=== PATIENT | female | born 1985 | race Caucasian/White ===

== ENCOUNTER 2023-12-28 11:14 | Emergency (ER) | payer MEDICAID, SELFPAY ==
--- NOTE | 2023-12-28 | ECG_ITS ---
APPROVED REPORT Exam: Resting ECG HR:138 bpm ECG Measurements Heart Rate 138 AXES OR 135 P 73 QRSd 81 QRS 103 QT 283 T 58 QTc 363 Conclusion SINUS TACHYCARDIA RIGHT AXIS DEVIATION [QRS AXIS > 100] ABNORMAL ECG UNCONFIRMED REPORT Electronically signed by : GINO VICENTE, 12/29/2023 23:12:19
[2023-12-28 11:14] VITALS: BP 137/92; PULSE 124; RESP 24; TEMP 37.1; O2SAT 100; BMI 24.0
[2023-12-28 11:30] VITALS: BP 129/98; PULSE 118; RESP 23; O2SAT 100
--- NOTE | 2023-12-28 11:33 | PC.NURSE ---
Dr. Oreilly at [facility] for pt eval
--- NOTE | 2023-12-28 11:37 | ED_ITS ---
Discharge Plan Disposition Patient Disposition: Home, Self-Care Prescriptions Prescriptions: New hydroxyzine pamoate [Vistaril] 25 mg capsule 25 mg PO Q8H PRN (Reason: anxiety) 7 Days Qty: 21 0RF Referrals Follow up/Referrals: Gayla Okeefe APRN [Nurse Practitioner] - See instructions Provider,Ishmael Alston [Tech - Non Licensed] - See instructions Activity Restrictions/Add. Instructions Additional Instructions/Restrictions: Please follow-up with Gayla Okeefe to further discuss your chronic anxiety and panic attack needs. Return with any significant worsening of her symptoms. Clinical Impressions Clinical Impression: Severe anxiety with panic Print Language Print Language: Monegasque Discharge ED Provider: Branden Oreilly General Adult HPI General Chief complaint: Chest Pain Stated complaint: Chest Pain, poss panic attack Time Seen by Provider: 12/28/23 11:32 History of Present Illness HPI narrative: Patient is a 38-year-old female accompanied by her boyfriend who presents today with severe anxiety and panic. She states she has a history of agoraphobia and gets very anxious and concerned about many things at random times. Nothing specifically provokes this today. She does state that she feels that her chest is tight but denies any other symptoms at the moment. Denies any other past medical history. Related Data Previous Rx's ?Medication ?Instructions ?Recorded hydroxyzine pamoate 25 mg capsule 25 mg PO Q8H PRN anxiety 7 days 12/28/23 (Vistaril) #21 caps Allergies Allergy/AdvReac Type Severity Reaction Status Date / Time povidone-iodine (From Allergy Mild Rash Verified 12/28/23 11:38 Betadine) iron Allergy Rash Verified 12/28/23 11:38 PFSH PFS Disclaimer: The information contained in this section may have been updated after the patient was seen, as this information can be updated by other users. Social History Smoking Status: Current every day smoker alcohol intake: never current occupational status: other ROS Obtained: Yes All systems reviewed & no additional complaints except as documented Physical Exam General General appearance: anxious (Severe anxiety and panic) Respiratory Respiratory exam: Present normal lung sounds bilaterally Cardiovascular Cardiovascular exam: Present tachycardia Neurological Exam Neurological exam: Present alert and oriented X3 Medical Decision Making Medical Records Screening: Per USPSTF and CDC recommendations, given the prevalence of disease in our region, it is our hospital?s policy to screen for HIV and viral Hepatitis for all patients aged 18 and over and those with ongoing risk factors. Anand Inquiry Pt receiving controlled substance: No Vital Signs: 12/28/23 11:14 12/28/23 11:30 12/28/23 12:01 Temperature 98.7 F Temperature Source Oral Pulse Rate 118 H 114 H Pulse Rate [Right] 124 H Respiratory Rate 24 23 Blood Pressure 129/98 H 118/70 Blood Pressure [Right Arm] 137/92 H Blood Pressure Mean 86 Blood Pressure Mean [Right Arm] 107 Blood Pressure Source [Right Arm] Automatic Cuff 02 Sat by Pulse Oximetry 100 100 100 Oxygen Delivery Method Room Air Room Air Room Air Orders (Tests/Meds): ED MEDICATIONS Generic Name Dose Route Start Last Admin Trade Name Freq PRN Reason Stop Dose Admin Lactated Ringer's 1,000 mls @ 999 mls/hr 12/28/23 11:45 12/28/23 11:46 Lactated Ringer's 1000 Ml Bag IV 12/28/23 12:45 999 mls/hr .Q1H1M GONSALO Administration Sodium Chloride 10 ml 12/28/23 11:35 Sodium Chloride 0.9% 10ml Vial IV 01/27/24 11:34 NEEDED PRN to Dilute Lorazepam inj Discontinued Medications Generic Name Dose Route Start Last Admin Trade Name Freq PRN Reason Stop Dose Admin Lorazepam 1 mg 12/28/23 11:35 12/28/23 11:46 Lorazepam 2mg/Ml Vial IV 12/28/23 11:36 1 mg ONCE ONE Administration ORDERS Category Date Time Status HIV (1&2) Antibody Rapid Stat Lab 12/28/23 11:15 Received Hep C Ab with Reflex to RNA Stat Lab 12/28/23 11:15 Received ECG Data Tracing #1: Ventricular rate of 138 sinus tachycardia no acute ischemic changes noted negative deflection in lead I consistent with right axis deviation no significant duction abnormalities Medical Decision Narrative: 38-year-old presenting today with sinus tachycardia and severe anxiety and panic. This is consistent with a panic attack. EKG is nonischemic highly doubt that this is ACS or myocardial ischemia. Also do not believe this is other cardiopulmonary pathology such as pulmonary embolism etc. Will hold off on further workup until anxiolytics and IV fluids have been administered. Will reassess after that. Reassessment 12:32 PM patient's heart rate on my final evaluation is 100 she has completely improved after IV Ativan she not has any chest pain that is all consistent with panic attack and anxiety. I have given her referral to Gayla Okeefe and prescribed Vistaril as needed for her anxiety as needed. Return precautions emphasized was discharged in stable condition. Critical Care Critical Care Time Critical Care Time: No
[2023-12-28] MEDS: LORazepam 2MG/ML VIAL 1 MG IV (11:46)
[2023-12-28] MEDS: LACTATED RINGERS 1000ML 1,000 ML 999 ML IV (11:46)
[2023-12-28 12:01] VITALS: BP 118/70; PULSE 114; O2SAT 100
[2023-12-28 12:35] LABS: HIV (1&2) Antibody Rapid NONREACTIVE (NONREACTIVE)
[2023-12-28 12:36] VITALS: BP 105/69; PULSE 113; RESP 18; TEMP 36.7; O2SAT 99
[2023-12-29 07:14] LABS: HCV Ab Non Reactive (Non Reactive)
== END 2023-12-28 12:37 | disposition home or self-care (01) ==
PROVIDERS: Emergency Provider Student in an Organized Health Care Education/Training Program; PCP Emergency Medicine
DX: F41.0 Panic disorder [episodic paroxysmal anxiety] (principal); R07.9 Chest pain, unspecified
CPT/HCPCS: 86803; 87389; 93005; 96361; 96374; 99283; J2060; J7120

== ENCOUNTER 2024-11-18 00:05 | Emergency (ER) | payer MEDICAID, SELFPAY ==
--- OUTSIDE RECORDS SUMMARY | 2009-05-11 20:00 | XMS_ITS | Continuity of Care Document ---
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 Name Role Phone No Information Unavailable Unavailable Advance Directives Directive Yes / No Effective Date File Name No Information Encounters Encounter Description Practice Location Reason(s) For Visit Diagnoses Date Provider Providers Copied on Encounter [facility], [address] [place] [address], [facility], [place] tel:[phone] No Location No Information Apr-0 7-201 0 No Information Family History Family Member Type Diagnosis Age At Onset No Information Payers Payer name Insurance type Covered alliance party ID Authoriza tion(s) No Information Social History Type Description Quantity Date Captured Comments Sex Female Smoking Status No Information Chief Complaint And Reason For Visit No Information Reason For Referral Reason For Referral No Information History Of Present Illness Encounter Date Complaint History Of Prese nt Illness No Information Functional Status Date Functional Assessmen t No Information Instructions Date Instruction Additional Infor mation No Information Assessments Type Assessment Date No Information Patient Care Teams Name Effective Dates (start - stop) Status Members No Information
--- OUTSIDE RECORDS SUMMARY | 2024-07-12 17:30 | XMS_ITS ---
Author Organization [facility] Address [address] [place] [address] Care Team Providers [facility] Wellness Coordinator Name Role Phone Migration, Provider Unavailable Unavailable Allergies Allergen (clinical drug ingredient) Drug/Non Drug Allergy documented on EMR Reaction Allergy Type Onset Date Status povidone-iodine Betadine rash Drug Allergy A ctive oxycodone oxyCODONE rash Drug Allergy Active tramadol traMADol Unknown Drug Allergy Active REASON FOR VISIT [facility] To [facility] Conversion Encounter Medications Medication SIG (Take, Route, Frequency, Duration) Notes Start Date End Date Status rOPINIRole HCl 1 MG Tablet 1 tab(s) oral ly 3 times a day; Duration: 30 day(s) 07/07/2020 Active Pepcid 20 MG Tablet 1 tab(s) orally 2 ti mes a day; Duration: 30 days Active Atenolol 25 MG Tablet 1 tab(s) orally on ce a day; Duration: 30 day(s) Active Promethazine-DM 6.25-15 MG/5ML Syrup 5 mL orally every 6 hours prn 05/03/2021 Active Vitamin D3 1.25 MG (72635 UT) Capsule as directed orally once a week; Duration: 30 day(s) Active KlonoPIN 0.5 MG Tablet 1 tab(s) orally d aily prn; Duration: 28 days 04/11/2021 Active Encounters Encounter Location Date Provider Diagnosis [facility] [address] [place] [address] 07/12/2024 Provider Migration Plan Of Treatment No Information Progress Notes * Katherin WILSON RDOB:1985 (39 yo F)Acc No.[id number]:07/12/2024 Patient: Katherin Fernandez Provider: :1985 A ge:39 Y S ex:Female Date:07/12/2024 Address:[place], [id number] Subjective: * Chief Complaints: * M [facility] Conversion Encounter * Medications: T akingVitamin D3 1.25 MG (98315 UT) Capsule as directed orally once a week rOPINIRole HCl 1 MG Tablet 1 tab(s) orally 3 times a day Pepcid 20 MG Tablet 1 tab(s) orally 2 times a day Atenolol 25 MG Tablet 1 tab(s) orally once a day KlonoPIN 0.5 MG Tablet 1 tab(s) orally daily prn Promethazine-DM 6.25-15 MG/5ML Syrup 5 mL orally every 6 hours prn Taking Vitamin D3 1.25 MG (64197 UT) Capsule as directed orally once a week Taking rOPINIRole HCl 1 MG Tablet 1 tab(s) orally 3 times a day Taking Pepcid 20 MG Tablet 1 tab(s) orally 2 times a day Taking Atenolol 25 MG Tablet 1 tab(s) orally once a day Taking KlonoPIN 0.5 MG Tablet 1 tab(s) orally daily prn Taking Promethazine-DM 6.25-15 MG/5ML Syrup 5 mL orally every 6 hours prn * Allergies: B etadine: rashoxyCODONE: rashtraMADol * Electronic signature of Prov ider Migration on 11/18/2024 at 12:12 AM EDT Sign off status: Pending * Provider: Date: 0 07/12/2024 Generated for Darin olmos/Glory/Sona on: 1 12:12 AM EDT
--- OUTSIDE RECORDS SUMMARY | 2024-11-18 00:12 | XMS_ITS | Encounter Summary ---
Author Organization [employer] ([place], [place], [place], [place]) Address [address] [place] [address] Care Team Providers Care Division Manager Name Role Phone Unavailable Primary Care Provider Unavailabl e Encounter Details Date Type Department Care Team (Late st Contact Info) Description 10/18/2018 Transcribed Document [facility] Family Medicine [address] [place] [address] ProviderNani MD [address] [place] [address] Social History Tobacco Use Types Packs/Day Years Used Date Smoking Tobacco: Never Assessed Comments Unknown Sex and Gender Information Value Date Recorded Sex Assigned at Not on file Legal Sex Female 1:39 PM CDT Gender Identity Not on file Sexual Orientation Not on file documented as of this encounter Miscellaneous Notes * Cerner Conversion Note - Nani Campos MD - 10/18/2018 6:35 AM CDT [facility] [address] [place], [place] [id number] KATHERIN WILSON :1985 Visit Time:10/18/2018 Your Visit Summary Your Care Team Admitting Physician - MARILYN, KARINA BARRIOS MD Attending Physician - KARINA RALPH MD Primary Care Physician - HARISH SANDERS DR Referring Physician - KARINA RALPH MD Your Diagnosis Anxiety, Anxiety Panic attack Medical Information You may obtain a copy of your Emergency Department visit from Medical Records by calling the hospital phone number listed above and asking to be directed to the Medical Records Department. If you had special tests, such as EKG???s or X-rays, the interpretation of your tests given to you by the Emergency Department Physician is a preliminary report. Some fractures and illnesses fail to show up on preliminary tests. These will be reviewed again and we will call you if there are any new suggestions. If your symptoms continue notify your physician. After you leave, you should follow the instructions provided. What to do next Follow-Up Appointments Follow Up with Follow up with primary care provider When Within 2 to 3 days Comments Follow-up with your primary care provider in 2-3 days for reevaluation. Return to the emergency department for any acute worsening of symptoms or acute new concerns. Allergies iron polysaccharide oxyCODONE povidone iodine topical traMADol Immunizations This Visit No Immunizations Found Medications What How Much When Instructions Next Dose The home medications listed are only as accurate as the information you provided. Please continue taking all of your medications prescribed by your Primary Care Provider unless specifically told to change or discontinue the medication. Please direct any questions regarding your home medications to your Primary Care Provider. Take your medications faithfully. Do NOT skip medication. Do NOT stop taking medications without the direction of a physician. Carry a list of your medications with you at all times, and take this medication list with you to your first follow up visit. Report any side effects. Avoid herbal remedies unless discussed with your physician. As part of your treatment plan, your physician may have prescribed a limited course of a controlled substance. This medication may be given to help people with moderate or severe pain or for other medical conditions, but there are risks involved with treatment. Common side effects may include nausea, constipation, drowsiness, sweating, itching, dry mouth, and rash. More serious side effects may include cognitive and motor impairment, like problems with thinking, concentrating, alertness, and movement (e.g. slowed reflexes), and driving and operating heavy machinery can be dangerous. It is important for you to talk to your physician if you have these side effects or questions. These controlled substances can produce physical dependence and be habit-forming if taken for an extended period of time, which means that the body has gotten used to them and may experience withdrawal symptoms if they are abruptly stopped. Withdrawal symptoms can include runny nose, sweating, goose bumps, diarrhea, abdominal cramping, rapid heartbeat, difficulty sleeping, and nervousness. Please dispose of unused and medications per pharmacy guidance. Test Results Laboratory or Other Results This Visit (last charted value for your 10/18/2018 visit) Hematology 10/18/18 05:55:00 WBC: 8.2 K/uL -- Normal range between ( 4.5 and 10.5 ) RBC: 4.81 Million/uL -- Normal range between ( 3.93 and 5.22 ) Hct: 42.4 % -- Normal range between ( 34.1 and 44.9 ) Hgb: 14.4 g/dL -- Normal range between ( 11.2 and 15.7 ) Platelet Count: 259 K/uL -- Normal range between ( 163 and 369 ) MCH: 29.9 pg -- Normal range between ( 25.6 and 32.2 ) MCHC: 34.0 Gram/dL -- Normal range between ( 32.2 and 36.5 ) MCV: 88.1 fL -- Normal range between ( 79.0 and 94.8 ) Slide Review: No Eos %: 0.9 % -- Normal range between ( 0.0 and 7.0 ) [place] #: 0.56 K/uL -- Normal range between ( 0.16 and 1.00 ) Eos #: 0.07 x10(3)/uL -- Normal range between ( 0.00 and 0.80 ) [place] %: 6.8 % -- Normal range between ( 3.0 and 9.0 ) Baso %: 0.5 % -- Normal range between ( 0.0 and 1.5 ) Baso #: 0.04 x10(3)/uL -- Normal range between ( 0.00 and 0.20 ) RDW: 12.1 % -- Normal range between ( 11.7 and 14.9 ) Neut %: 57.2 % -- Normal range between ( 34.0 and 71.0 ) Neut #: 4.71 K/uL -- Normal range between ( 1.56 and 6.13 ) Lymph %: 34.2 % -- Normal range between ( 19.3 and 53.1 ) Lymph #: 2.81 x10(3)/uL -- Normal range between ( 1.00 and 3.90 ) MPV: 10.2 fL -- Normal range between ( 9.4 and 12.4 ) IG#: 0.03 x10(3)/uL -- Normal range between ( 0.00 and 0.05 ) IG%: 0.40 % -- Normal range between ( 0.00 and 0.60 ) Urinalysis 10/18/18 05:55:00 Ur RBC: 0-2 /HPF Urine Nitrite: Negative Urine Leukocyte Esterase: Negative Urine Appearance: Clear Urine Glucose Dipstick: Negative Urine Blood Dipstick: Negative Urine Urobilinogen Dipstick: 0.2 EU/dL Urine Protein Dipstick: Negative Ur Bacteria: Trace Ur Squamous Epithelial Cells: 0-2 /HPF Urine Color: Yellow Ur WBC: 0-2 /HPF Urine Ketones Dipstick: Negative Urine pH Dipstick: 6.0 -- Normal range between ( 6.0 and 8.0 ) Urine Bilirubin Dipstick: Negative Urine Specific [place]: 1.008 -- Normal range between ( 1.005 and 1.030 ) Urine Type.: U CleanCatch General Chemistry 10/18/18 05:55:00 Creatinine Level: 0.70 mg/dL -- Normal range between ( 0.55 and 1.02 ) Sodium Level: 138 mmol/L -- Normal range between ( 136 and 146 ) Potassium Level: 2.9 mmol/L -- Normal range between ( 3.5 and 5.1 ) Chloride Level: 105 mmol/L -- Normal range between ( 102 and 112 ) Carbon Dioxide Level: 24 mmol/L -- Normal range between ( 21 and 32 ) Anion Gap: 12 -- Normal range between ( 9 and 20 ) Bun/Creatinine: 10.0 -- Normal range between ( 8.0 and 20.0 ) Calcium Level: 8.9 mg/dL -- Normal range between ( 8.4 and 10.1 ) eGFR : >60 mL/min/1.73m2 eGFR NonAfrican: >60 mL/min/1.73m2 Glucose Level: 88 mg/dL -- Normal range between ( 74 and 106 ) Magnesium Level: 1.8 mg/dL -- Normal range between ( 1.5 and 2.4 ) Blood Urea Nitrogen: 7 mg/dL -- Normal range between ( 7 and 22 ) Phosphorus: 2.7 mg/dL -- Normal range between ( 2.5 and 4.9 ) Toxicology 10/18/18 05:55:00 UDS Amp: NEGATIVE UDS Zara: NEGATIVE UDS Benzo: NEGATIVE UDS Tima: NEGATIVE UDS Opi: NEGATIVE UDS PCP: NEGATIVE UDS TCA: NEGATIVE UDS THC: NEGATIVE UDS pH: 6.5 [employer] Panic Attack A panic attack is a sudden episode of severe anxiety, fear, or discomfort that causes physical and emotional symptoms. The attack may be in response to something frightening, or it may occur for no known reason. Symptoms of a panic attack can be similar to symptoms of a heart attack or stroke. It is important to see your health care provider when you have a panic attack so that these conditions can be ruled out. A panic attack is a symptom of another condition. Most panic attacks go away with treatment of the underlying problem. If you have panic attacks often, you may have a condition called panic disorder. What are the causes? A panic attack may be caused by: ??? An extreme, life-threatening situation, such as a war or natural disaster. ??? An anxiety disorder, such as post-traumatic stress disorder. ??? Depression. ??? Certain medical conditions, including heart problems, neurological conditions, and infections. ??? Certain aynj-lbb-rxbpkmk and prescription medicines. ??? Illegal drugs that increase heart rate and blood pressure, such as methamphetamine. ??? Alcohol. ??? Supplements that increase anxiety. ??? Panic disorder. What increases the risk? You are more likely to develop this condition if: ??? You have an anxiety disorder. ??? You have another mental health condition. ??? You take certain medicines. ??? You use alcohol, illegal drugs, or other substances. ??? You are under extreme stress. ??? A life event is causing increased feelings of anxiety and depression. What are the signs or symptoms? A panic attack starts suddenly, usually lasts about 20 minutes, and occurs with one or more of the following: ??? A pounding heart. ??? A feeling that your heart is beating irregularly or faster than normal (palpitations). ??? Sweating. ??? Trembling or shaking. ??? Shortness of breath or feeling smothered. ??? Feeling choked. ??? Chest pain or discomfort. ??? Nausea or a strange feeling in your stomach. ??? Dizziness, feeling lightheaded, or feeling like you might faint. ??? Chills or hot flashes. ??? Numbness or tingling in your lips, hands, or feet. ??? Feeling confused, or feeling that you are not yourself. ??? Fear of losing control or being emotionally unstable. ??? Fear of dying. How is this diagnosed? A panic attack is diagnosed with an assessment by your health care provider. During the assessment your health care provider will ask questions about: ??? Your history of anxiety, depression, and panic attacks. ??? Your medical history. ??? Whether you drink alcohol, use illegal drugs, take supplements, or take medicines. Be honest about your substance use. Your health care provider may also: ??? Order blood tests or other kinds of tests to rule out serious medical conditions. ??? Refer you to a mental health professional for further evaluation. How is this treated? Treatment depends on the cause of the panic attack: ??? If the cause is a medical problem, your health care provider will either treat that problem or refer you to a specialist. ??? If the cause is emotional, you may be given anti-anxiety medicines or referred to a counselor. These medicines may reduce how often attacks happen, reduce how severe the attacks are, and lower anxiety. ??? If the cause is a medicine, your health care provider may tell you to stop the medicine, change your dose, or take a different medicine. ??? If the cause is a drug, treatment may involve letting the drug wear off and taking medicine to help the drug leave your body or to counteract its effects. Attacks caused by drug abuse may continue even if you stop using the drug. Follow these instructions at home: ??? Take vkxi-hep-fvevvyj and prescription medicines only as told by your health care provider. ??? If you feel anxious, limit your caffeine intake. ??? Take good care of your physical and mental health by: ? Eating a balanced diet that includes plenty of fresh fruits and vegetables, whole grains, lean meats, and low-fat dairy. ? Getting plenty of rest. Try to get 7???8 hours of uninterrupted sleep each night. ? Exercising regularly. Try to get 30 minutes of physical activity at least 5 days a week. ? Not smoking. Talk to your health care provider if you need help quitting. ? Limiting alcohol intake to no more than 1 drink a day for non women and 2 drinks a day for men. One drink equals 12 oz of beer, 5 oz of wine, or 1?? oz of hard liquor. ??? Keep all follow-up visits as told by your health care provider. This is important. Panic attacks may have underlying physical or emotional problems that take time to accurately diagnose. Contact a health care provider if: ??? Your symptoms do not improve, or they get worse. ??? You are not able to take your medicine as prescribed because of side effects. Get help right away if: ??? You have serious thoughts about hurting yourself or others. ??? You have symptoms of a panic attack. Do not drive yourself to the hospital. Have someone else drive you or call an ambulance. If you ever feel like you may hurt yourself or others, or you have thoughts about taking your own life, get help right away. You can go to your nearest emergency department or call: ??? Your local emergency services (911 in the [place] ??? A suicide crisis helpline, such as the National Suicide Prevention Lifeline at . This is open 24 hours a day. Summary ??? A panic attack is a sign of a serious health or mental health condition. Get help right away. Do not drive yourself to the hospital. Have someone else drive you or call an ambulance. ??? Always see a health care provider to have the reasons for the panic attack correctly diagnosed. ??? If your panic attack was caused by a physical problem, follow your health care provider's suggestions for medicine, referral to a specialist, and lifestyle changes. ??? If your panic attack was caused by an emotional problem, follow through with counseling from a qualified mental health specialist. ??? If you feel like you may hurt yourself or others, call 911 and get help right away. This information is not intended to replace advice given to you by your health care provider. Make sure you discuss any questions you have with your health care provider. Document Released: 01/22/2006 Document Revised: 03/02/2017 Document Reviewed: 03/02/2017 Elsevier Interactive Patient Education ?? 2019 [employer] Emergency Awareness and Preventative Care STROKE is an EMERGENCY Every Minute Counts Act FAST and Check for these signs: FACE Does the face look uneven? ARM Does one arm drift down? SPEECH Does their speech sound strange? TIME Call at any sign of stroke Stroke Risk Factors Atrial Fibrillation (irregular heartbeat) Diabetes Family history of stroke Heart Disease Heavy alcohol use High Blood Pressure High Cholesterol Physical inactivity and obesity Smoking Cigarette Smoking The facts are clear, cigarette smoking will shorten your life. Smoking can cause many illnesses along the way. As a healthcare provider, we recommend that you stop smoking. Assistance with quitting is available by contacting 0-998-EXIDNOW. This is a free resource providing counseling, support, and referral. Or you may contact your personal physician. [facility] Suicide Prevention Lifeline: The National Suicide Prevention Lifeline is a national network of local crisis centers that provides free and confidential emotional support to people in suicidal crisis or emotional distress 24 hours a day, 7 days a week. Don't Wait! Stop a Heart Attack Before it Starts What is a heart attack? A heart attack is damage or to a part of the heart from severely decreased or lack of blood flow to the heart. Over time, arteries can become narrow from the buildup of fat and cholesterol, which is called plaque. The plaque can rupture causing a blood clot to form. When the blood clot forms, the artery can become severely narrowed or completely blocked, causing a heart attack. Heart attack is the leading cause of in the [place]. 85% of muscle damage occurs within the first 2 hours. Delay in the recognition of heart attack symptoms increases the chances of . Know the early symptoms of a heart attack: Nausea Feeling of fullness in chest Jaw Pain Pain that travels down one or both arms Fatigue/being tired Anxiety Back Pain Chest pressure, squeezing, or discomfort Shortness of breath Sweating, or a cold sweat Feeling of impending doom There are unusual signs of a heart attack, too! Women, the elderly, and diabetics may present with atypical symptoms: Fainting/dizziness Weakness Confusion Risk Factors for a Heart Attack Some heart disease risk factors, such as age and family history, cannot be changed. Others, like smoking and lack of exercise, can be changed. Smoking High Cholesterol High Blood Pressure Family History Obesity Age Gender (Males are at higher risk) Lack of Exercise Diabetes Diet Stress Excessive Alcohol Intake If you or someone you know is experiencing the signs and symptoms of a heart attack, DON???T DELAY. Call immediately and seek help. If someone collapses, perform CPR! Do not attempt to drive if you are having symptoms of heart attack. Hands-Only CPR Why Hands-Only CPR? Hands-Only CPR has been shown to be as effective as conventional CPR for cardiac arrests that occur outside of a hospital. Survival depends on immediately receiving CPR from someone nearby. How do you perform Hands-Only CPR? There are two easy steps: Call 9-1-1 if you see a teen or adult collapse Push hard and fast in the center of the chest at a beat of 100 beats per minute. Save a life! 4 WAYS TO GET AHEAD OF SEPSIS SEPSIS is a MEDICAL EMERGENCY. Time matters! Infections put you and your family at risk for a life-threatening condition called sepsis. Sepsis is the body's extreme response to an infection. It is life-threatening, and without timely treatment, sepsis can rapidly lead to tissue damage, organ failure, and . Sepsis happens when an infection you already have-in your skin, lungs, urinary tract or somewhere else-triggers a chain reaction throughout your body. 1 PREVENT INFECTIONS Take good care of chronic conditions. Talk to your doctor about getting the recommended vaccines. 2 PRACTICE GOOD HYGIENE Wash your hands frequently. Keep cuts or open sores clean and covered until they are healed. 3 KNOW THE SYMPTOMS Confusion or disorientation Shortness of breath High heart rate Fever, shivering, or feeling very cold Extreme pain or discomfort Clammy or sweaty skin 4 ACT FAST Get medical care IMMEDIATELY if you suspect sepsis or if you have an infection that is not getting better or is getting worse. To learn more about sepsis and how to prevent infections, visit www.cdc.gov/sepsis. The examination and treatment you have received in the Emergency Department has been done to provide an appropriate evaluation and stabilizing treatment on an emergency basis only. Given the limited resources, it is not meant to be a substitute for complete medical care. The follow-up doctor you named will receive a copy of your records and all test reports. IT IS IMPORTANT THAT YOU SCHEDULE A FOLLOW-UP APPOINTMENT AND ARE RE-EVALUATED. You should report any new complaints, symptoms, or remaining problems at that time. IT IS IMPOSSIBLE FOR THE EMERGENCY DEPARTMENT TO RECOGNIZE AND TREAT ALL ELEMENTS OF INJURY OR ILLNESS IN A SINGLE VISIT. If you have been referred to a specialist physician, it means that we believe you may have a condition that requires the expertise of a specialist. These physicians work in partnership with the hospital and have agreed to see referred patients in their office for further evaluation. KEEP IN MIND THAT THE SPECIALIST HAS HIS/HER OWN OFFICE POLICIES WHICH MAY REQUIRE PROPER INSURANCE OR PAYMENT UP FRONT BEFORE THE SPECIALIST WILL SEE YOU. It is your responsibility to call the specialist physician to make an appointment. We do not have the ability to refer patients to specialists/physicians that work with specific insurance companies. Please be advised that all financial charges or billing practices are determined by that practice, not the hospital. If your insurance company requires that you see a specialist from their approved list, it is your responsibility to contact your insurance company to make those arrangements. It is also your responsibility to follow any other requirements of your insurance company necessary to obtain coverage for claims submitted. We will bill your insurance; however, you are responsible today for any co-pay amounts. You will receive a separate bill for any services you may have received including: emergency, radiology, or pathology physicians. Patient Name:KATHERIN WILSON I have received this information and was given the opportunity to ask questions. Patient/Squirt Machine Operator Name: Patient/Squirt Machine Operator Signature: Relationship to Patient: Clinician/Hospital Squirt Machine Operator Signature: Please Provide a Telephone Number Where You Can Be Reached: Is it Permissible To Leave a Message? Date: documented in this encounter Plan of Treatment Not on file documented as of this encounter Visit Diagnoses Not on filedocumented in this encounter
--- OUTSIDE RECORDS SUMMARY | 2024-11-18 00:12 | XMS_ITS | Encounter Summary ---
Author Organization [employer] ([place], [place], [place], [place]) Address [address] [place] [address] Care Team Providers Care Paperboard Machine Operator Name Role Phone Unavailable Primary Care Provider Unavailabl e Encounter Details Date Type Department Care Team (Late st Contact Info) Description 08/16/[address] [facility] [place] Family Medicine [address] [place] [id number] ProviderNani MD [address] [place] [id number] Social History Tobacco Use Types Packs/Day Years Used Date Smoking Tobacco: Never Assessed Comments Unknown Sex and Gender Information Value Date Recorded Sex Assigned at Not on file Legal Sex Female 1:39 PM CDT Gender Identity Not on file Sexual Orientation Not on file documented as of this encounter Miscellaneous Notes * Cerner Conversion Note - Historical ProviderMD - 08/16/2020 8:34 PM CDT ED Discharge Entered On: 08/16/2020 20:35 EDT Performed On: 08/16/2020 20:34 EDT by Ninfa Clancy RN Discharge Process Patient Disposition : Discharge Patient Education Completed : Yes Teaching Evaluation : Verbalizes understanding IV Discontinued : Not applicable Nursing Documentation Completed : Yes Ninfa Clancy RN - 08/16/2020 20:34 EDT ED Discharge Discharge To : Home with ambulatory/outpatient follow-up Mode Of Departure : Ambulatory Accompanied By : Unaccompanied Discharge Instructions Reviewed With, Opportunity For Questions Given : Patient Prescriptions Given to Patient : No Ninfa Clancy RN - 08/16/2020 20:34 EDT Electronically signed by Giovanny Narayanan Conversion Employee Communications Coordinator [employer] at 05/25/2022 6:34 PM CDT documented in this encounter Plan of Treatment Not on file documented as of this encounter Visit Diagnoses Not on filedocumented in this encounter
--- OUTSIDE RECORDS SUMMARY | 2024-11-18 00:12 | XMS_ITS | Encounter Summary ---
Author Organization [employer] ([place], [place], [place], [place]) Address [address] [place] [address] Care Team Providers Care Bench Repair Technician Name Role Phone Unavailable Primary Care Provider Unavailabl e Encounter Details Date Type Department Care Team (Late st Contact Info) Description 10/18/[address] [facility] Family Medicine [address] [place] [address] ProviderNani MD [address] [place] [address] [phone] Social History Tobacco Use Types Packs/Day Years Used Date Smoking Tobacco: Never Assessed Comments Unknown Sex and Gender Information Value Date Recorded Sex Assigned at Not on file Legal Sex Female 1:39 PM CDT Gender Identity Not on file Sexual Orientation Not on file documented as of this encounter Miscellaneous Notes * Cerner Conversion Note - Historical ProviderMD - 10/18/2018 6:41 AM CDT ED Discharge Entered On: 10/18/2018 6:41 EDT Performed On: 10/18/2018 6:41 EDT by Christine Lezama Rn Discharge Process Patient Disposition : Discharge Personal Belongings With Patient : Yes Patient Education Completed : Yes Teaching Evaluation : Returns demonstration, Verbalizes understanding IV Discontinued : Yes Nursing Documentation Completed : Yes Christine Lezama Rn - 10/18/2018 6:41 EDT ED Discharge Discharge To : Home with ambulatory/outpatient follow-up Mode Of Departure : Ambulatory Accompanied By : Significant other Discharge Instructions Reviewed With, Opportunity For Questions Given : Patient Prescriptions Given to Patient : No Medications Given to Patient : No Christine Lezama Rn - 10/18/2018 6:41 EDT documented in this encounter Plan of Treatment Not on file documented as of this encounter Visit Diagnoses Not on filedocumented in this encounter
--- OUTSIDE RECORDS SUMMARY | 2024-11-18 00:12 | XMS_ITS | Encounter Summary ---
Author Organization [employer] ([place], [place], [place], [place]) Address [address] [place] [address] Care Team Providers Care Cw Operator Name Role Phone Unavailable Primary Care Provider Unavailabl e Encounter Details Date Type Department Care Team (Late st Contact Info) Description 06/17/2018 Transcribed Document [facility] [place] Family Medicine [address] [place] [address] ProviderNani MD [address] [place] [address] [phone] Social History Tobacco Use Types Packs/Day Years Used Date Smoking Tobacco: Never Assessed Comments Unknown Sex and Gender Information Value Date Recorded Sex Assigned at Not on file Legal Sex Female 1:39 PM CDT Gender Identity Not on file Sexual Orientation Not on file documented as of this encounter Miscellaneous Notes * Cerner Conversion Note - Nani ProviderMD - 06/17/2018 6:46 PM CDT ED Triage Entered On: 06/17/2018 19:04 EDT Performed On: 06/17/2018 19:00 EDT by Krystle Tapia LACE MACHINE OPERATOR Triage Across the Room Triage Date/Time : 06/17/2018 19:00 EDT Krystle Tapia RN - 06/17/2018 19:00 EDT Chief Complaint : patient with complaints of feeling anxious, states feels like heart is racing HR 134 in triage. Krystle Tapia RN - 06/17/2018 19:04 EDT Krystle Tapia RN - 06/17/2018 19:04 EDT DCP GENERIC CODE Tracking Group : [facility] ED Tracking Acuity : 2 - Emergent Krystle Tapia RN - 06/17/2018 19:00 EDT Mode of Arrival : Ambulatory Transported to ED by : Private vehicle To Room Via : Ambulate Accompanied By : Significant other ED Vital Signs : Document Height & Weight : Document ED Allergies : Document ED Reason for Visit : Document Tetanus Immunization : None received Tried to Harm Yourself in the Past? : No Thoughts of Harming/Killing Yourself : No Recent Thoughts of Harming/Killing Others : No Presser Cotton Ginning Needed : No Krystle Tapia RN - 06/17/2018 19:00 EDT Infectious Disease History Infectious Disease History : Chicken pox/Shingles, MRSA Fever/Chills Last 48 Hours : No Travel To Regions with Travel Advisories : No Travel Outside [place] Within Last 30 Days : No Contact With Traveler to Advisory Region : No Tuberculosis Symptoms : None Krystle Tapia RN - 06/17/2018 19:00 EDT Vital Signs ED Temperature Source : Oral Temperature Mode : Fahrenheit Temperature, Fahrenheit : 98.3 Deg F ED Pain : No Clinical Temperature, C : 36.8 Deg C Oxygen Therapy Mode : Room air Peripheral Pulse Rate : 134 bpm (HI) Respiratory Rate : 18 Breaths/Min Systolic Blood Pressure : 136 mmHg Diastolic Blood Pressure : 75 mmHg Oxygen Saturation : 99 % Krystle Tapia RN - 06/17/2018 19:00 EDT Allergy (As Of: 06/17/2018 19:04:15 EDT) Allergies (Active) iron polysaccharide Estimated Onset Date: Unspecified ; Created By: JOSE Amin; Reaction Status: Active ; Category: Drug ; Substance: iron polysaccharide ; Type: Allergy ; Updated By: JOSE Amin; Reviewed Date: 06/17/2018 19:01 EDT oxyCODONE Estimated Onset Date: Unspecified ; Created By: JOSE Amin; Reaction Status: Active ; Category: Drug ; Substance: oxyCODONE ; Type: Allergy ; Updated By: JOSE Amin; Reviewed Date: 06/17/2018 19:01 EDT povidone iodine topical Estimated Onset Date: Unspecified ; Created By: JOSE Amin; Reaction Status: Active ; Category: Drug ; Substance: povidone iodine topical ; Type: Allergy ; Updated By: JOSE Amin; Reviewed Date: 06/17/2018 19:01 EDT traMADol Estimated Onset Date: Unspecified ; Created By: Juwan_systemJOSE; Reaction Status: Active ; Category: Drug ; Substance: traMADol ; Type: Allergy ; Updated By: Contributor_systemJOSE; Reviewed Date: 06/17/2018 19:01 EDT Diagnosis Control ED (As Of: 06/17/2018 19:04:15 EDT) Problems(Active) Abscess (SNOMED CT :421492430 ) Name of Problem: Abscess ; Recorder: TAWANDA DIETZ RN; Confirmation: Confirmed ; Classification: Medical ; Code: [id number] ; Contributor System: Gent[employer]ix ; Last Updated: 07/17/2013 19:32 EDT ; Life Cycle Date: 10/24/2012 ; Life Cycle Status: Active ; Vocabulary: SNOMED CT Anxiety (SNOMED CT :24483230 ) Name of Problem: Anxiety ; Recorder: CLAUDIA GALVEZ RN; Confirmation: Confirmed ; Classification: Medical ; Code: [id number] ; Contributor System: PowerChart ; Last Updated: 07/17/2013 19:32 EDT ; Life Cycle Date: 10/07/2012 ; Life Cycle Status: Active ; Vocabulary: SNOMED CT Endometriosis (SNOMED CT :8200030250 ) Name of Problem: Endometriosis ; Recorder: CLAUDIA GALVEZ RN; Confirmation: Confirmed ; Classification: Medical ; Code: [id number] ; Contributor System: PowerChart ; Last Updated: 07/17/2013 19:32 EDT ; Life Cycle Date: 10/07/2012 ; Life Cycle Status: Active ; Vocabulary: SNOMED CT Irregular heart rate (SNOMED CT :261935404 ) Name of Problem: Irregular heart rate ; Recorder: Partha Theodore RN; Confirmation: Confirmed ; Classification: Medical ; Code: [id number] ; Contributor System: PowerChart ; Last Updated: 08/13/2017 0:54 EDT ; Life Cycle Date: 08/13/2017 ; Life Cycle Status: Active ; Vocabulary: SNOMED CT MRSA (SNOMED CT :633920025 ) Name of Problem: MRSA ; Recorder: CLAUDIA GALVEZ RN; Confirmation: Confirmed ; Classification: Medical ; Code: [id number] ; Contributor System: PowerChart ; Last Updated: 07/22/2013 11:03 EDT ; Life Cycle Date: 10/07/2012 ; Life Cycle Status: Active ; Vocabulary: SNOMED CT ; Comments: 10/07/2012 19:42 - CLAUDIA GALVEZ RN hx Panic disorder (SNOMED CT :7976167293 ) Name of Problem: Panic disorder ; Recorder: DEVIKA LOZOYA RN; Confirmation: Confirmed ; Classification: Medical ; Code: [id number] ; Contributor System: [employer] ; Last Updated: 07/17/2013 19:32 EDT ; Life Cycle Date: 11/10/2012 ; Life Cycle Status: Active ; Vocabulary: SNOMED CT Diagnoses(Active) Anxiety Date: 06/17/2018 ; Diagnosis Type: Reason For Visit ; Confirmation: Complaint of ; Clinical Dx: Anxiety ; Classification: Medical ; Clinical Service: Emergency medicine ; Code: PNED ; Probability: 0 ; Diagnosis Code: [id number] ED Height and Weight Height Source : Stated Height Entry Format : [place] Height, Feet : 4 ft(Converted to: 122 cm, 48 Inch) Height, Inches : 11 Inch(Converted to: 0 ft 11 Inch, 27.94 cm) Clinical Height : 149.86 cm Weight Source, ED : Critical estimated dosing weight Weight Entry Format : [place] Weight, Pounds : 120 lb Clinical Dosing Weight : 54.55 kg Body Surface Area (BSA) : 1.49 m2 Body Mass Index : 24.3 kg/m2 (HI) [place] Body Weight (IBW) : 42.87 kg Krystle Tapia RN - 06/17/2018 19:00 EDT Electronically signed by Giovanny Narayanan Conversion Consulting Marine Engineer Cerner at 05/25/2022 6:42 PM CDT documented in this encounter Plan of Treatment Not on file documented as of this encounter Visit Diagnoses Not on filedocumented in this encounter
--- OUTSIDE RECORDS SUMMARY | 2024-11-18 00:12 | XMS_ITS | Encounter Summary ---
Author Organization [employer] ([place], [place], [place], [place]) Address [address] [place] [address] Care Team Providers Care Telegraphic Typewriter Installer Name Role Phone Unavailable Primary Care Provider Unavailabl e Encounter Details Date Type Department Care Team (Late st Contact Info) Description 06/17/2018 Transcribed Document [facility] Family Medicine [facility] [place] [address] ProviderNani MD [address] [place], [place] [phone] Social History Tobacco Use Types Packs/Day Years Used Date Smoking Tobacco: Never Assessed Comments Unknown Sex and Gender Information Value Date Recorded Sex Assigned at Not on file Legal Sex Female 1:39 PM CDT Gender Identity Not on file Sexual Orientation Not on file documented as of this encounter Miscellaneous Notes * Cerner Conversion Note - Historical ProviderMD - 06/17/2018 11:21 PM CDT ED Discharge Entered On: 06/17/2018 23:23 EDT Performed On: 06/17/2018 23:21 EDT by Quin Varner house painting instructor Process Patient Disposition : AMA/Elope/LWBS Quin Varner RN - 06/17/2018 23:21 EDT LWBS/Elopement/AMA Patient Left Prior To Medical Screening : Unseen Quin Varner RN - 06/17/2018 23:21 EDT Electronically signed by Jeane Narayanan Conversion Oral And Maxillofacial Surgery Yesenia at 05/25/2022 6:34 PM CDT documented in this encounter Plan of Treatment Not on file documented as of this encounter Visit Diagnoses Not on filedocumented in this encounter
--- OUTSIDE RECORDS SUMMARY | 2024-11-18 00:12 | XMS_ITS | Encounter Summary ---
Author Organization [employer] ([place], [place], [place], [place]) Address [address] [place] [address] Care Team Providers Care Tube Builder Airplane Name Role Phone Unavailable Primary Care Provider Unavailabl e Encounter Details Date Type Department Care Team (Late st Contact Info) Description 09/04/2018 Transcribed Document [facility] [place] Family Medicine [address] [place] [address] ProviderNani MD [address] [place] [address] Social History Tobacco Use Types Packs/Day Years Used Date Smoking Tobacco: Never Assessed Comments Unknown Sex and Gender Information Value Date Recorded Sex Assigned at Not on file Legal Sex Female 1:39 PM CDT Gender Identity Not on file Sexual Orientation Not on file documented as of this encounter Miscellaneous Notes * Cerner Conversion Note - Historical ProviderMD - 09/04/2018 6:53 PM CDT Patient: KATHERIN WILSON Age: 33 years Sex: Female : 1985 Associated Diagnoses: Panic attack; Anxiety Author: TAWANDA POLLARD APR Basic Information Time seen: Date & time 09/04/2018 15:45:00. History source: Patient. Arrival mode: Private vehicle. History limitation: None. Additional information: Chief Complaint from Nursing Triage Note : Chief Complaint 09/04/2018 15:34 EDT Chief Complaint Pt presents to the ER stating she is having a panic attack. Woke up this morning anxious. Pt jittery in triage. HR 150 in triage. Denies chest pain . . History of Present Illness Patient presents to the ER with complaints of anxiety today. She states that she has been feeling very anxious and had some chest pressure. Patient states that she went on to get some cigarettes when she started having the symptoms. She states that she has had this before in the past. She does attend Suboxone clinic. The patient is not sure what caused her to get anxious today. Review of Systems Constitutional symptoms: Negative except as documented in HPI. Skin symptoms: Negative except as documented in HPI. Respiratory symptoms: Negative except as documented in HPI. Cardiovascular symptoms: Negative except as documented in HPI. Gastrointestinal symptoms: Negative except as documented in HPI. Musculoskeletal symptoms: Negative except as documented in HPI. Neurologic symptoms: Negative except as documented in HPI. Psychiatric symptoms: Anxiety, depression, substance abuse. Endocrine symptoms: Negative except as documented in HPI. Hematologic/Lymphatic symptoms: Negative except as documented in HPI. Allergy/immunologic symptoms: Negative except as documented in HPI. Health Status Allergies: Allergic Reactions (Selected) Severity Not Documented Iron polysaccharide- No reactions were documented. OxyCODONE- No reactions were documented. Povidone iodine topical- No reactions were documented. TraMADol- No reactions were documented.. Medications: (Selected) Inpatient Medications Ordered Xanax: 0.5 mg, Oral, 1-Time Documented Medications Documented Suboxone 8 mg-2 mg sublingual film: 2 Each, SubLINgual, Daily, 0 Refill(s). Past Medical/ Family/ Social History Surgical history: R hip abscess. Laparoscopy ([id number])., Reviewed as documented in chart. Family history: No family history items have been selected or recorded., Reviewed as documented in chart. Social history: Social & Psychosocial Habits Alcohol 10/07/2012 Alcohol Use in Last Twelve Months No Home/Environment 12/19/2012 Lives with: Children, Significant other Living situation: Home/Independent Substance Abuse 10/07/2012 Recreational Drug Use History No Recreational Drug Use Last 12 Months No Tobacco 10/07/2012 Tobacco Use Within Last Twelve Months Cigarettes Smoking Status Current every day smoker Packs/Tins Daily 1 , Reviewed as documented in chart. Problem list: Active Problems (6) Abscess Anxiety Endometriosis Irregular heart rate MRSA Panic disorder , per nurse's notes. Physical Examination Vital Signs Vital Signs/Vital Measures 09/04/2018 16:30 EDT Systolic Blood Pressure 115 mmHg Diastolic Blood Pressure 78 mmHg Mean Arterial Pressure (MAP)-BMDI 94 Heart Rate Monitored 118 bpm HI Respiratory Rate 19 Breaths/Min Oxygen Saturation 99 % Oxygen Therapy Mode Room air 09/04/2018 16:25 EDT Oxygen Therapy Mode Room air 09/04/2018 15:34 EDT Systolic Blood Pressure 123 mmHg Diastolic Blood Pressure 84 mmHg Temperature Source Oral Temperature Mode Fahrenheit Peripheral Pulse Rate 150 bpm HI Respiratory Rate 16 Breaths/Min Oxygen Saturation 100 % Oxygen Therapy Mode Room air . Measurements 09/04/2018 15:34 EDT Height Source Stated Height Entry Format [place] Height/Length, [place] (ft) 4 ft Height/Length [place] 11 Inch CLINICALHEIGHT 149.86 cm Garrett Body Weight 42.87 kg Weight Source, ED Critical estimated dosing weight Weight Entry Format [place] Weight [place] lb 110 lb CLINICALWEIGHT 50 kg Body Surface Area (BSA) 1.43 m2 Body Mass Index 22.3 kg/m2 . Oxygen Saturation 09/04/2018 16:30 EDT Oxygen Saturation 99 % 09/04/2018 15:34 EDT Oxygen Saturation 100 % . General: Alert, no acute distress. Skin: Warm, pink, intact. Cardiovascular: Regular rate and rhythm, Tachycardia. Respiratory: Lungs are clear to auscultation, respirations are non-labored, breath sounds are equal. Musculoskeletal: Normal ROM. Neurological: Alert and oriented to person, place, time, and situation. Psychiatric: Cooperative. Medical Decision Making Differential Diagnosis: Anxiety, depression, suicide risk, bipolar disorder, psychosis, mi, arrythmia. Orders Include Previous Orders (Selected) Inpatient Orders Ordered Discharge: Electrocardiogram: Completed .Automated Differential: CBC w/ Auto Diff: CMP Comprehensive Metabolic Panel: D Dimer Quantitative: ED Adult Fall Risk Assessment: ED Adult Triage: ED Clinical Reconciliation: ED meat hostess: LORazepam: 1 mg, IV Push, 1-Time Normal Saline Flush: 10 mL, IV Push, 1-Time Saline Lock Insert: Troponin I Ultra: Xanax: 0.5 mg, Oral, 1-Time. monitoring manager: Rate 135, Sinus Tachycardia. Results review: All Results 09/04/2018 20:05 EDT Discharge Instructions 09/04/2018 16:25 EDT ED Nursing Record 09/04/2018 20:03 EDT D-BOOST Psychiatric Yes 09/04/2018 15:34 EDT ED Nursing Record 09/04/2018 15:25 EDT Consent Forms Consent Forms 09/04/2018 19:12 EDT ALPRAZolam 0.5 mg mg 09/04/2018 17:04 EDT Estimated Creatinine Clearance 78.69 mL/Min 09/04/2018 17:00 EDT EKG Completed by Kofi Chauhan, Emergency Room Web Specialist 09/04/2018 16:32 EDT Sodium Level 138 mmol/L Potassium Level 3.1 mmol/L LOW Chloride Level 105 mmol/L Carbon Dioxide Level 23 mmol/L Anion Gap 13 Glucose Level 105 mg/dL Blood Urea Nitrogen 7 mg/dL Creatinine Level 0.70 mg/dL eGFR >60 mL/min/1.73m2 eGFR NonAfrican >60 mL/min/1.73m2 Bun/Creatinine 10.0 Calcium Level 8.9 mg/dL Protein Total 7.7 Gram/dL Albumin Level 4.3 Gram/dL Globulin 3.4 Gram/dL A/G Ratio 1.3 Bilirubin Total 0.2 mg/dL Alk Phos 86 Units/Liter AST 25 Units/Liter ALT 19 Units/Liter Troponin I Ultra <0.015 ng/mL WBC 8.1 K/uL RBC 4.53 Million/uL Hgb 13.5 g/dL Hct 40.8 % MCV 90.1 fL MCH 29.8 pg MCHC 33.1 Gram/dL Platelet Count 250 K/uL MPV 10.8 fL RDW 12.5 % Neut % 44.9 % Neut # 3.63 K/uL Lymph % 44.5 % Lymph # 3.59 x10(3)/uL [place] % 7.6 % [place] # 0.61 K/uL Eos % 1.6 % Eos # 0.13 x10(3)/uL Baso % 1.0 % Baso # 0.08 x10(3)/uL Slide Review No IG# 0.03 x10(3)/uL IG% 0.40 % D Dimer Quant See Comment mg/L FEU 09/04/2018 16:30 EDT Systolic Blood Pressure 115 mmHg Diastolic Blood Pressure 78 mmHg Mean Arterial Pressure (MAP)-BMDI 94 Heart Rate Monitored 118 bpm HI Respiratory Rate 19 Breaths/Min Oxygen Saturation 99 % Oxygen Therapy Mode Room air 09/04/2018 16:25 EDT Oxygen Therapy Mode Room air Neurologic Assessment WDL WDL with exceptions Level of Consciousness Alert, Awake Level of Consciousness Alert, Awake Orientation Oriented x 4 Neurological Symptoms Tingling Affect/Behavior Anxious Affect/Behavior Anxious Speech Clear Cardiovascular Assessment WDL WDL with exceptions Cardiovascular Symptoms Palpitations at rest Heart Rhythm Regular Cardiac Rhythm Sinus tachycardia Respiratory Assessment WDL WD Respiratory Pattern Description Regular Cough None All Lobes Breath Sounds Clear Gastrointestinal Assessment WDL WD with exceptions Gastrointestinal Symptoms Nausea Genitourinary Assessment WD WD Musculoskeletal Assessment WD WD Integumentary Assessment [facility] WD Communication Barrier None Primary Language Swedish Information Obtained From Patient Smoking Status 10 or more cigarettes (1/2 pack or more)/day in last 30 days Desires Tobacco Cessation Medication No Smokeless Tobacco Status Never Any Spiritual/Cultural Needs or Requests No Currently in Unsafe Situation No 09/04/2018 16:24 EDT sodium chloride Not Done: Completed and previously documented (Not Done) 09/04/2018 16:09 EDT LORazepam 1 mg mg 09/04/2018 16:02 EDT Nurse Collect Order Detail 3.00 09/04/2018 16:01 EDT Nurse Collect Order Detail 3.00 09/04/2018 15:59 EDT Nurse Collect Order Detail 3.00 09/04/2018 15:59 EDT Nurse Collect Order Detail 3.00 09/04/2018 15:57 EDT Nurse Collect Order Detail 3.00 09/04/2018 15:57 EDT Nurse Collect Order Detail 3.00 09/04/2018 15:44 EDT ABCs Fall Injury Risk Identification None TORIBIO Hx Falls Immediate/Within 3 Months No Toribio Secondary Diagnosis No TORIBIO Ambulatory Aid None Toribio IV Therapy or IV Access No Toribio Gait/Transferring Normal, bedrest, immobile TORIBIO Mental Status Oriented to own ability Toribio Fall Risk Score 0 Toribio Fall Scale Risk Level 0-24 Low Risk [place] Fall Interventions Adequate lighting, Call device within reach, Room free of clutter/spills 09/04/2018 15:41 EDT Estimated Creatinine Clearance 110.16 mL/Min 09/04/2018 15:34 EDT Systolic Blood Pressure 123 mmHg Diastolic Blood Pressure 84 mmHg Temperature Source Oral Temperature Mode Fahrenheit Peripheral Pulse Rate 150 bpm HI Respiratory Rate 16 Breaths/Min Oxygen Saturation 100 % Oxygen Therapy Mode Room air Height Source Stated Height Entry Format [place] Height/Length, [place] (ft) 4 ft Height/Length [place] 11 Inch CLINICALHEIGHT 149.86 cm Garrett Body Weight 42.87 kg Weight Source, ED Critical estimated dosing weight Weight Entry Format [place] Weight [place] lb 110 lb CLINICALWEIGHT 50 kg Body Surface Area (BSA) 1.43 m2 Body Mass Index 22.3 kg/m2 Tuberculosis Symptoms None Infectious Disease History Chicken pox/Shingles, MRSA Fever/Chills Last 48 Hours No Travel To Regions with Travel Advisories No Travel Outside [place] Within Last 30 Days No Contact With Traveler to Advisory Region No Chief Complaint Pt presents to the ER stating she is having a panic attack. Woke up this morning anxious. Pt jittery in triage. HR 150 in triage. Denies chest pain . Transported to ED by Walk in To Room Via Ambulate Tracking Acuity 3 - Urgent Accompanied by Unaccompanied Mode of Arrival Ambulatory Tetanus Immunization None received 09/04/2018 15:24 EDT Nurse Collect Order Detail 3.00 09/04/2018 15:24 EDT Nurse Collect Order Detail 3.00 09/04/2018 15:00 EDT 09/04/2018 15:56 Over the needle Antecubital Right 20 gauge Peripheral Catheter/Needle Length: 1 ?? Inch Peripheral IV Activity: Blood drawn with insertion, Saline lock, Start Peripheral IV Inserted by: Patrice Jauregui, Emergency Room Web Specialist Peripheral IV Number of Attempts: 1 Peripheral IV Skin Preparation: Chlorhexadine Peripheral IV Site Assessment: IV site WDL Peripheral IV Infiltration Score: 0 Peripheral IV Phlebitis Score: 0 IV Site/Line Care: Secured with tape IV Dressing Activity: Applied Peripheral IV Dressing: Occlusive Peripheral IV Dressing Condition: Dry, Intact . Reexamination/ Reevaluation Time: 09/04/2018 20:09:00 . Vital signs per nurse's notes Course: improving. Pain status: decreased. Assessment: exam improved. Impression and Plan Diagnosis Panic attack - Discharge, Emergency medicine, Medical Anxiety - Discharge, Emergency medicine, Medical Plan Condition: Stable. Disposition: Discharged Admit/Transfer/Discharge: Discharge (Order): Start: 09/04/2018 20:03 EDT, Discharge to: Home. Patient was given the following educational materials: Panic Attack. Follow up with: RO SAVAGE [facility] 2:30 AM Appointment has been made. Please arrive 30 minutes before appointment. Bring photo ID, proof of insurance, new patient paperwork, and your discharge summary. Please confirm appointment with office prior to your arrival date. If you do not call to confirm, or office cannot reach you to confirm, office may cancel your appointment. Office may charge a fee for not attending scheduled appointment. Any questions, please call the Patient Resource Center at .; Patient Resource Center Within 2 to 3 days For further assistance with your Primary Care Physician please contact the Patient Resource Center at [phone].; [address] [facility] Within 2 to 3 days; Follow up with primary care provider Within 2 to 3 days; Return to Emergency Department Within As needed. Counseled: Patient, Family, Regarding diagnosis, Regarding diagnostic results, Regarding treatment plan, Regarding prescription, Patient indicated understanding of instructions. documented in this encounter Plan of Treatment Not on file documented as of this encounter Visit Diagnoses Not on filedocumented in this encounter
--- OUTSIDE RECORDS SUMMARY | 2024-11-18 00:12 | XMS_ITS | Encounter Summary ---
Author Organization [employer] ([place], [place], [place], [place]) Address [address] [place] [address] Care Team Providers Care Zinc Skimmer Name Role Phone Unavailable Primary Care Provider Unavailabl e Encounter Details Date Type Department Care Team (Late st Contact Info) Description 10/18/2018 Transcribed Document [facility] [place] [facility] [place] [address] ProviderNani MD [address] [place] [address] [phone] Social History Tobacco Use Types Packs/Day Years Used Date Smoking Tobacco: Never Assessed Comments Unknown Sex and Gender Information Value Date Recorded Sex Assigned at Not on file Legal Sex Female 1:39 PM CDT Gender Identity Not on file Sexual Orientation Not on file documented as of this encounter Miscellaneous Notes * Cerner Conversion Note - Nani ProviderMD - 10/18/2018 5:32 AM CDT ED Assessment Entered On: 10/18/2018 5:45 EDT Performed On: 10/18/2018 5:43 EDT by KATIE PIZARRO RN ED Quick Look Assessment Level of Consciousness : Alert, Awake Affect/Behavior : Anxious Skin Description : Normal for ethnicity KATIE PIZARRO RN - 10/18/2018 5:43 EDT ED General-Functional Assess Information Obtained From : Patient Preferred Communication Mode : Verbal Communication Barrier : None Primary Language : Yoruba Any Spiritual/Cultural Needs or Requests : No Currently in Unsafe Situation : No Clinical Trials Participant *Q : None Clinical Trials Participant, None *Q : Yes KATIE PIZARRO RN - 10/18/2018 5:43 EDT Social Habits Smoking Status : Never (less than 100 in lifetime; none in last 30 days), 10 or more cigarettes (1/2 pack or more)/day in last 30 days Smokeless Tobacco Status : Refused tobacco status screen Desires Tobacco Cessation Medication : No Reason for No Tobacco Cessation Medication : Refuses FDA approved medications Desires Tobacco Cessation Calc : 1 KATIE PIZARRO RN - 10/18/2018 5:43 EDT Social History (As Of: 10/18/2018 05:45:25 EDT) Tobacco: Use in Last 12 Months: Cigarettes. Smoking Status Current every day smoker. Packs/Tins Daily: 1. (Last Updated: 10/07/2012 19:43:34 EDT by CLAUDIA GALVEZ RN) Alcohol: Use in Last 12 Months: No. (Last Updated: 10/07/2012 19:43:23 EDT by CLAUDIA GALVEZ RN) Substance Abuse: Drug Use Hx: No. Use in Last 12 Months: No. (Last Updated: 10/07/2012 19:43:27 EDT by CLAUDIA GALVEZ RN) Home/Environment: Lives with Children, Significant other. Living situation: Home/Independent. (Last Updated: 12/19/2012 06:42:31 EST by MARJORIE LOPEZ PA-C) EENT Assessment EENT Assessment WDL : KATIE ORR RN - 10/18/2018 5:43 EDT Cardiovascular ASMT, ED Cardiovascular Assessment WDL : Juan with exceptions (Comment: patient tachycardic R/T panic attack [KATIE PIZARRO RN - 10/18/2018 5:43 EDT] ) KATIE PIZARRO RN - 10/18/2018 5:43 EDT Respiratory Respiratory Assessment WDL : KATIE ORR RN - 10/18/2018 5:43 EDT Oxygen Therapy Oxygen Therapy Mode : Room air KATIE PIZARRO RN - 10/18/2018 5:43 EDT Genitourinary Assessment, ED Genitourinary Assessment WDL : KATIE ORR RN - 10/18/2018 5:43 EDT Musculoskeletal Musculoskeletal Assessment WDL : KATIE ORR RN - 10/18/2018 5:43 EDT Integumentary Assessment Integumentary Assessment WDL : KATIE ORR RN - 10/18/2018 5:43 EDT Neurologic ASMT, ED Neurologic Assessment WDL : KATIE ORR RN - 10/18/2018 5:43 EDT documented in this encounter Plan of Treatment Not on file documented as of this encounter Visit Diagnoses Not on filedocumented in this encounter
--- OUTSIDE RECORDS SUMMARY | 2024-11-18 00:12 | XMS_ITS | Encounter Summary ---
Author Organization [employer] ([place], [place], [place], [place]) Address [address] [place] [address] Care Team Providers Care Conveyor Technician Name Role Phone Unavailable Primary Care Provider Unavailabl e Encounter Details Date Type Department Care Team (Late st Contact Info) Description 10/18/2018 Transcribed Document [facility] [place] Family Medicine [address] [place] [address] ProviderNani MD [address] [place] [address] [phone] Social History Tobacco Use Types Packs/Day Years Used Date Smoking Tobacco: Never Assessed Comments Unknown Sex and Gender Information Value Date Recorded Sex Assigned at Not on file Legal Sex Female 1:39 PM CDT Gender Identity Not on file Sexual Orientation Not on file documented as of this encounter Miscellaneous Notes * Cerner Conversion Note - Historical ProviderMD - 10/18/2018 5:32 AM CDT ED Triage Entered On: 10/18/2018 5:40 EDT Performed On: 10/18/2018 5:37 EDT by Ninfa Clancy Rn ED Triage Across the Room Triage Date/Time : 10/18/2018 5:37 EDT Chief Complaint : pt via lobby c/o panic attack since 4 am. 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 Ninfa Clancy Rn - 10/18/2018 5:37 EDT DCP GENERIC CODE Tracking Acuity : 3 - Urgent Tracking Group : [facility] ED Ninfa Clancy Rn - 10/18/2018 5:37 EDT Mode of Arrival : Ambulatory Transported to ED by : Private vehicle To Room Via : Ambulate Accompanied By : Unaccompanied ED Vital Signs : Document Height & Weight : Document ED Allergies : Document ED Reason for Visit : Document Tetanus Immunization : None received Tried to Harm Yourself in the Past? : No Thoughts of Harming/Killing Yourself : No Ninfa Clancy Rn - 10/18/2018 5:37 EDT Infectious Disease History Infectious Disease History : Chicken pox/Shingles, MRSA Fever/Chills Last 48 Hours : No Travel To Regions with Travel Advisories : No Travel Outside [place] Within Last 30 Days : No Contact With Traveler to Advisory Region : No Tuberculosis Symptoms : None Ninfa Clancy Rn - 10/18/2018 5:37 EDT Vital Signs ED Temperature Source : Oral Temperature Mode : Fahrenheit Temperature, Fahrenheit : 98.6 Deg F Clinical Temperature, C : 37 Deg C Oxygen Therapy Mode : Room air Peripheral Pulse Rate : 142 bpm (HI) Respiratory Rate : 20 Breaths/Min Systolic Blood Pressure : 139 mmHg Diastolic Blood Pressure : 92 mmHg (HI) Oxygen Saturation : 100 % Ninfa Clancy Rn - 10/18/2018 5:37 EDT Allergy (As Of: 10/18/2018 05:40:13 EDT) Allergies (Active) iron polysaccharide Estimated Onset Date: Unspecified ; Created By: JOSE BELLE; Reaction Status: Active ; Category: Drug ; Substance: iron polysaccharide ; Type: Allergy ; Updated By: JOSE BELLE; Reviewed Date: 10/18/2018 5:39 EDT oxyCODONE Estimated Onset Date: Unspecified ; Created By: JOSE BELLE; Reaction Status: Active ; Category: Drug ; Substance: oxyCODONE ; Type: Allergy ; Updated By: JOSE BELLE; Reviewed Date: 10/18/2018 5:39 EDT povidone iodine topical Estimated Onset Date: Unspecified ; Created By: JOSE BELLE; Reaction Status: Active ; Category: Drug ; Substance: povidone iodine topical ; Type: Allergy ; Updated By: JOSE BELLE; Reviewed Date: 10/18/2018 5:39 EDT traMADol Estimated Onset Date: Unspecified ; Created By: JOSE BELLE; Reaction Status: Active ; Category: Drug ; Substance: traMADol ; Type: Allergy ; Updated By: CONTRIBUTOR_SYSTEM, HIST_ELENO; Reviewed Date: 10/18/2018 5:39 EDT Diagnosis Control ED (As Of: 10/18/2018 05:40:13 EDT) Problems(Active) Abscess (SNOMED CT :908930491 ) Name of Problem: Abscess ; Recorder: TAWANDA DIETZ RN; Confirmation: Confirmed ; Classification: Medical ; Code: [id number] ; Contributor System: MimeoChart ; Last Updated: 07/17/2013 19:32 EDT ; Life Cycle Date: 10/24/2012 ; Life Cycle Status: Active ; Vocabulary: SNOMED CT Anxiety (SNOMED CT :50370236 ) Name of Problem: Anxiety ; Recorder: CLAUDIA GALVEZ RN; Confirmation: Confirmed ; Classification: Medical ; Code: [id number] ; Contributor System: MimeoChart ; Last Updated: 07/17/2013 19:32 EDT ; Life Cycle Date: 10/07/2012 ; Life Cycle Status: Active ; Vocabulary: SNOMED CT Endometriosis (SNOMED CT :7153817919 ) Name of Problem: Endometriosis ; Recorder: CLAUDIA GALVEZ RN; Confirmation: Confirmed ; Classification: Medical ; Code: [id number] ; Contributor System: PowerChart ; Last Updated: 07/17/2013 19:32 EDT ; Life Cycle Date: 10/07/2012 ; Life Cycle Status: Active ; Vocabulary: SNOMED CT Irregular heart rate (SNOMED CT :965044209 ) Name of Problem: Irregular heart rate ; Recorder: Partha Theodore RN; Confirmation: Confirmed ; Classification: Medical ; Code: [id number] ; Contributor System: PowerChart ; Last Updated: 08/13/2017 0:54 EDT ; Life Cycle Date: 08/13/2017 ; Life Cycle Status: Active ; Vocabulary: SNOMED CT MRSA (SNOMED CT :762410751 ) Name of Problem: MRSA ; Recorder: CLAUDIA GALVEZ RN; Confirmation: Confirmed ; Classification: Medical ; Code: [id number] ; Contributor System: MimeoChart ; Last Updated: 07/22/2013 11:03 EDT ; Life Cycle Date: 10/07/2012 ; Life Cycle Status: Active ; Vocabulary: SNOMED CT ; Comments: 10/07/2012 19:42 - CLAUDIA GALVEZ RN hx Panic disorder (SNOMED CT :6007570496 ) Name of Problem: Panic disorder ; Recorder: DEVIKA LOZOYA RN; Confirmation: Confirmed ; Classification: Medical ; Code: [id number] ; Contributor System: [employer]Me ; Last Updated: 07/17/2013 19:32 EDT ; Life Cycle Date: 11/10/2012 ; Life Cycle Status: Active ; Vocabulary: SNOMED CT Diagnoses(Active) Anxiety Date: 10/18/2018 ; Diagnosis Type: Reason For Visit ; Confirmation: Complaint of ; Clinical Dx: Anxiety ; Classification: Medical ; Clinical Service: Non-Specified ; Code: PNED ; Probability: 0 ; Diagnosis Code: [id number] ED Height and Weight Height Source : Stated Height Entry Format : Gage Height, Feet : 4 ft(Converted to: 122 cm, 48 Inch) Height, Inches : 11 Inch(Converted to: 0 ft 11 Inch, 27.94 cm) Clinical Height : 149.86 cm Weight Source, ED : Critical estimated dosing weight Weight Entry Format : Gage Weight, Pounds : 125 lb Clinical Dosing Weight : 56.82 kg Body Surface Area (BSA) : 1.51 m2 Body Mass Index : 25.3 kg/m2 (HI) [place] Body Weight (IBW) : 42.87 kg Ninfa Clancy Rn - 10/18/2018 5:37 EDT documented in this encounter Plan of Treatment Not on file documented as of this encounter Visit Diagnoses Not on filedocumented in this encounter
--- OUTSIDE RECORDS SUMMARY | 2024-11-18 00:12 | XMS_ITS | Encounter Summary ---
Author Organization [employer] ([place], [place], [place], [place]) Address [address] [place] [address] Care Team Providers Care Stove Polisher Name Role Phone Unavailable Primary Care Provider Unavailabl e Encounter Details Date Type Department Care Team (Late st Contact Info) Description 08/17/2020 Transcribed Document [facility] [place] [facility] [place] [address] ProviderNani MD [address] [place], [place] [address] Social History Tobacco Use Types Packs/Day Years Used Date Smoking Tobacco: Never Assessed Comments Unknown Sex and Gender Information Value Date Recorded Sex Assigned at Not on file Legal Sex Female 1:39 PM CDT Gender Identity Not on file Sexual Orientation Not on file documented as of this encounter Miscellaneous Notes * Cerner Conversion Note - Historical ProviderMD - 08/17/2020 10:27 AM CDT SARS-CoV-2 (COVID19 PCR) - - Negative 08/16/2020 19:20 08/17/2020 10:27 (TAWANDA POLLARD APRN) Reviewed by Provider, No further action required, Called and Left Message Electronically signed by Oracio [facility] Conversion Cable Installer Repairer Helper Cerner at 05/25/2022 6:42 PM CDT documented in this encounter Plan of Treatment Not on file documented as of this encounter Visit Diagnoses Not on filedocumented in this encounter
--- OUTSIDE RECORDS SUMMARY | 2024-11-18 00:12 | XMS_ITS | Encounter Summary ---
Author Organization [employer] ([place], [place], [place], [place]) Address [address] [place] [address] Care Team Providers Care Toddler Caregiver Name Role Phone Unavailable Primary Care Provider Unavailabl e Encounter Details Date Type Department Care Team (Late st Contact Info) Description 08/16/2020 Transcribed Document [facility] [place] Family Medicine [facility] [place] [address] ProviderNani MD [address] [place] [phone] Social History Tobacco Use Types Packs/Day Years Used Date Smoking Tobacco: Never Assessed Comments Unknown Sex and Gender Information Value Date Recorded Sex Assigned at Not on file Legal Sex Female 1:39 PM CDT Gender Identity Not on file Sexual Orientation Not on file documented as of this encounter Miscellaneous Notes * Cerner Conversion Note - Historical ProviderMD - 08/16/2020 4:55 PM CDT [place] Suicide Severity Rating Scale (C-SSRS) Entered On: 08/16/2020 17:13 EDT Performed On: 08/16/2020 17:08 EDT by Tabitha Rucker RN-PATIENT CARE BEDSIDE NON-EXEMPT [place] Suicide Severity Rating Scale (C-SSRS) CSSRS Past Month Wish to be : No CSSRS Past Month Suicidal Thoughts : No CSSRS Lifetime Suicide Behavior : No Suicide Severity Rating Score : 0 Suicide Severity Rating : No Additional Care Required at this time Tabitha Rucker RN-PATIENT CARE BEDSIDE NON-EXEMPT - 08/16/2020 17:08 EDT documented in this encounter Plan of Treatment Not on file documented as of this encounter Visit Diagnoses Not on filedocumented in this encounter
--- OUTSIDE RECORDS SUMMARY | 2024-11-18 00:12 | XMS_ITS | Encounter Summary ---
Author Organization [employer] ([place], [place], [place], [place]) Address [address] [place] [address] Care Team Providers Care Drapery Rod Assembler Name Role Phone Unavailable Primary Care Provider Unavailabl e Encounter Details Date Type Department Care Team (Late st Contact Info) Description 08/18/2020 Transcribed Document [facility] [place] Family Medicine [facility] [place] [address] ProviderNani MD [address] [place], [place] [phone] Social History Tobacco Use Types Packs/Day Years Used Date Smoking Tobacco: Never Assessed Comments Unknown Sex and Gender Information Value Date Recorded Sex Assigned at Not on file Legal Sex Female 1:39 PM CDT Gender Identity Not on file Sexual Orientation Not on file documented as of this encounter Miscellaneous Notes * Cerner Conversion Note - Historical ProviderMD - 08/18/2020 12:14 PM CDT CR Chest 2 Vws Ordered: 08/16/2020 Auth (Verified) Reason for Exam: pain 08/16/2020 17:57 08/18/2020 12:14 (APOORVA HOWELL PA-C) Reviewed by Provider, No further action required documented in this encounter Plan of Treatment Not on file documented as of this encounter Visit Diagnoses Not on filedocumented in this encounter
--- OUTSIDE RECORDS SUMMARY | 2024-11-18 00:12 | XMS_ITS | Encounter Summary ---
Author Organization [employer] ([place], [place], [place], [place]) Address [address] [place] [address] Care Team Providers Care Lithograph Press Feeder Name Role Phone Unavailable Primary Care Provider Unavailabl e Encounter Details Date Type Department Care Team (Late st Contact Info) Description 09/04/2018 Transcribed Document [facility] [place] [facility] [place] [address] ProviderNani MD [address] [place] [phone] Social History Tobacco Use Types Packs/Day Years Used Date Smoking Tobacco: Never Assessed Comments Unknown Sex and Gender Information Value Date Recorded Sex Assigned at Not on file Legal Sex Female 1:39 PM CDT Gender Identity Not on file Sexual Orientation Not on file documented as of this encounter Miscellaneous Notes * Cerner Conversion Note - Nani ProviderMD - 09/04/2018 3:24 PM CDT ED Assessment Entered On: 09/04/2018 16:37 EDT Performed On: 09/04/2018 16:25 EDT by Krystle Tapia, GENERAL FREIGHT AGENT Quick Look Assessment Level of Consciousness : Alert, Awake Affect/Behavior : Anxious Orientation : Oriented x 4 Krystle Tapia RN - 09/04/2018 16:35 EDT ED General-Functional Assess Information Obtained From : Patient Preferred Communication Mode : Verbal Communication Barrier : None Primary Language : Lao Any Spiritual/Cultural Needs or Requests : No Currently in Unsafe Situation : No Krystle Tapia RN - 09/04/2018 16:35 EDT Social Habits Smoking Status : 10 or more cigarettes (1/2 pack or more)/day in last 30 days Smokeless Tobacco Status : Never Desires Tobacco Cessation Medication : No Reason for No Tobacco Cessation Medication : ED/procedural patient only Desires Tobacco Cessation Calc : 1 Krystle Tapia RN - 09/04/2018 16:35 EDT Social History (As Of: 09/04/2018 16:37:40 EDT) Tobacco: Use in Last 12 Months: [...] 12/19/2012 06:42:31 EST by MARJORIE LOPEZ PA-C) Cardiovascular ASMT, ED Cardiovascular Assessment WDL : WDL with exceptions Cardiovascular Symptoms : Palpitations at rest Heart Rhythm : Regular Detailed Cardiovascular Assessment : Open Krystle Tapia RN - 09/04/2018 16:35 EDT Cardiovascular ASMT, Detailed Cardiac Rhythm : Sinus tachycardia Krystle Tapia RN - 09/04/2018 16:35 EDT Respiratory Respiratory Assessment WDL : WDL Cough : None Krystle Tapia RN - 09/04/2018 16:35 EDT Breath Sounds Assessment Grid All Lobes Breath Sounds : Clear Krystle Tapia RN - 09/04/2018 16:35 EDT Respiratory Pattern Description : Regular Krystle Tapia RN - 09/04/2018 16:35 EDT Oxygen Therapy Oxygen Therapy Mode : Room air Krystle Tapia RN - 09/04/2018 16:35 EDT Gastrointestinal ED Gastrointestinal Assessment WDL : WDL with exceptions Gastrointestinal Symptoms : Nausea Krystle Tapia RN - 09/04/2018 16:35 EDT Genitourinary Assessment, ED Genitourinary Assessment WDL : WD Krystle Tapia RN - 09/04/2018 16:35 EDT Musculoskeletal Musculoskeletal Assessment WDL : WDL Krystle Tapia RN - 09/04/2018 16:35 EDT Integumentary Assessment Integumentary Assessment WDL : WDL Krystle Tapia RN - 09/04/2018 16:35 EDT Neurologic ASMT, ED Neurologic Assessment WDL : WDL with exceptions Neurological Symptoms : Tingling Level of Consciousness : Alert, Awake Affect/Behavior : Anxious Speech : Clear Krystle Tapia, RN - 09/04/2018 16:35 EDT Electronically signed by [facility] Conversion Textile Designs Sales Representative Cerner at 05/25/2022 6:55 PM CDT documented in this encounter Plan of Treatment Not on file documented as of this encounter Visit Diagnoses Not on filedocumented in this encounter
--- OUTSIDE RECORDS SUMMARY | 2024-11-18 00:12 | XMS_ITS | Encounter Summary ---
Author Organization [employer] ([place], [place], [place], [place]) Address [address] [place] [address] Care Team Providers Care Sales Order Administrator Name Role Phone Unavailable Primary Care Provider Unavailabl e Encounter Details Date Type Department Care Team (Late st Contact Info) Description 09/04/2018 Transcribed Document [facility] [place] [facility] [place] [address] ProviderNani MD [address] [place], [place] [phone] Social History Tobacco Use Types Packs/Day Years Used Date Smoking Tobacco: Never Assessed Comments Unknown Sex and Gender Information Value Date Recorded Sex Assigned at Not on file Legal Sex Female 1:39 PM CDT Gender Identity Not on file Sexual Orientation Not on file documented as of this encounter Miscellaneous Notes * Cerner Conversion Note - Historical ProviderMD - 09/04/2018 8:10 PM CDT ED Discharge Entered On: 09/04/2018 20:10 EDT Performed On: 09/04/2018 20:10 EDT by Cynthia Oakley Rn Discharge Process Patient Disposition : Discharge Personal Belongings With Patient : Yes Patient Education Completed : Yes Teaching Evaluation : Returns demonstration, Verbalizes understanding IV Discontinued : Yes Cynhtia Oakley Rn - 09/04/2018 20:10 EDT ED Discharge Discharge To : Home with ambulatory/outpatient follow-up Mode Of Departure : Ambulatory Prescriptions Given to Patient : No Medications Given to Patient : Yes Number of Medications Given : 2 Cynthia Oakley Rn - 09/04/2018 20:10 EDT Electronically signed by Jeane Narayanan Conversion Digital Marketing Strategist [employer] at 05/25/2022 6:43 PM CDT documented in this encounter Plan of Treatment Not on file documented as of this encounter Visit Diagnoses Not on filedocumented in this encounter
--- OUTSIDE RECORDS SUMMARY | 2024-11-18 00:12 | XMS_ITS | Encounter Summary ---
Author Organization [employer] ([place], [place], [place], [place]) Address [address] [place] [address] Care Team Providers Care Line Clearance Foreman Name Role Phone Unavailable Primary Care Provider Unavailabl e Encounter Details Date Type Department Care Team (Late st Contact Info) Description 10/18/2018 Transcribed Document [facility] [place] [facility] [place] [address] ProviderNani MD [facility] [place] [phone] Social History Tobacco Use Types Packs/Day Years Used Date Smoking Tobacco: Never Assessed Comments Unknown Sex and Gender Information Value Date Recorded Sex Assigned at Not on file Legal Sex Female 1:39 PM CDT Gender Identity Not on file Sexual Orientation Not on file documented as of this encounter Miscellaneous Notes * Cerner Conversion Note - Historical ProviderMD - 10/18/2018 6:47 PM CDT CR Chest 1 Vw Portable Ordered: 10/18/2018 Modified Reason for Exam: Chest Pain 10/18/2018 08:45 10/18/2018 18:47 (PEGGY GARCIA PA) Reviewed by Provider, No further action required x1 Electronically signed by Oracio [facility] Conversion Board Of Directors Cerner at 05/25/2022 6:51 PM CDT documented in this encounter Plan of Treatment Not on file documented as of this encounter Visit Diagnoses Not on filedocumented in this encounter
--- OUTSIDE RECORDS SUMMARY | 2024-11-18 00:12 | XMS_ITS | Encounter Summary ---
Author Organization [employer] ([place], [place], [place], [place]) Address [address] [place] [address] Care Team Providers Care Zipper Joiner Name Role Phone Unavailable Primary Care Provider Unavailabl e Encounter Details Date Type Department Care Team (Late st Contact Info) Description 10/18/2018 Transcribed Document [facility] [place] [address] [place] [id number] ProviderNani MD [address] [place] [address] [id number] Social History Tobacco Use Types Packs/Day Years Used Date Smoking Tobacco: Never Assessed Comments Unknown Sex and Gender Information Value Date Recorded Sex Assigned at Not on file Legal Sex Female 1:39 PM CDT Gender Identity Not on file Sexual Orientation Not on file documented as of this encounter Miscellaneous Notes * Cerner Conversion Note - Historical ProviderMD - 10/18/2018 5:52 AM CDT Patient: KATHERIN WILSON Age: 33 years Sex: Female : 1985 Associated Diagnoses: Panic attack Author: KARINA RALPH MD Basic Information Time seen: Date & time 10/18/2018 05:58:00. History source: Patient. Arrival mode: Private vehicle. History limitation: None. Additional information: Chief Complaint from Nursing Triage Note : Chief Complaint 10/18/2018 5:37 EDT Chief Complaint pt via lobby c/o panic attack since 4 am. 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 . History of Present Illness This is a 33-year-old female with a past medical history significant for anxiety who presents to the emergency department for panic attack since around 4 AM. She states that she tried taking hydroxyzine but has had no relief of symptoms. She has panic attacks frequently and has started Zoloft and hydroxyzine to help control him. She does not currently see a therapist. She states her heart rate is always high whenever she has a panic attack. She denies any alcohol or drug use. She is a smoker. Nothing in particular brings her anxiety attacks on. Review of Systems Additional review of systems information: 10 point review of systems reviewed and negative except as stated in history of present illness . Health Status Allergies: Allergic Reactions (Selected) Severity Not Documented Iron polysaccharide- No reactions were documented. OxyCODONE- No reactions were documented. Povidone iodine topical- No reactions were documented. TraMADol- No reactions were documented.. Medications: (Selected) Documented Medications Documented Suboxone 8 mg-2 mg sublingual film: 2 Each, SubLINgual, Daily, 0 Refill(s), per nurse's notes. Immunizations: Per nurse's notes. Past Medical/ Family/ Social History Medical history Reviewed as documented in chart. Surgical history: Reviewed as documented in chart. Family history: Reviewed as documented in chart. Social history: Reviewed as documented in chart. Problem list: Active Problems (6) Abscess Anxiety Endometriosis Irregular heart rate MRSA Panic disorder , per nurse's notes. Physical Examination Vital Signs Vital Signs/Vital Measures 10/18/2018 6:26 EDT Heart Rate Monitored 97 bpm Respiratory Rate 19 Breaths/Min 10/18/2018 6:24 EDT Systolic Blood Pressure 121 mmHg Diastolic Blood Pressure 75 mmHg Mean Arterial Pressure (MAP)-BMDI 93 Heart Rate Monitored 106 bpm HI Respiratory Rate 21 Breaths/Min HI Oxygen Saturation 100 % Oxygen Therapy Mode Room air 10/18/2018 5:43 EDT Oxygen Therapy Mode Room air 10/18/2018 5:37 EDT Systolic Blood Pressure 139 mmHg Diastolic Blood Pressure 92 mmHg HI Temperature Source Oral Temperature Mode Fahrenheit Temperature, Fahrenheit 98.6 Deg F Clinical Temperature, C 37 Deg C Peripheral Pulse Rate 142 bpm HI Respiratory Rate 20 Breaths/Min Oxygen Saturation 100 % Oxygen Therapy Mode Room air . Per nurse's notes. General: Alert, no acute distress. Skin: Warm, dry. Head: Normocephalic. Neck: Supple. Ears, nose, mouth and throat: Oral mucosa moist. Cardiovascular: No murmur, Regular rhythm with tachycardia. Respiratory: Lungs are clear to auscultation, respirations are non-labored, breath sounds are equal. Gastrointestinal: Soft, Nontender, Non distended. Neurological: Normal speech observed, normal coordination observed. Psychiatric: Cooperative, Anxious. Medical Decision Making Differential Diagnosis: Anxiety, drug abuse, psychosis. Documents reviewed: Emergency department nurses' notes, prior records. Electrocardiogram: Time 10/18/2018 05:41:00, rate 142, normal sinus rhythm, normal OK & QRS intervals, EP Interp. Results review: Lab results : Lab Results 10/18/2018 5:55 EDT Sodium Level 138 mmol/L Potassium Level 2.9 mmol/L LOW Chloride Level 105 mmol/L Carbon Dioxide Level 24 mmol/L Anion Gap 12 Glucose Level 88 mg/dL Blood Urea Nitrogen 7 mg/dL CREATININE 0.70 mg/dL eGFR >60 mL/min/1.73m2 eGFR NonAfrican >60 mL/min/1.73m2 Bun/Creatinine 10.0 Calcium Level 8.9 mg/dL Magnesium Level 1.8 mg/dL Phosphorus 2.7 mg/dL WBC 8.2 K/uL RBC 4.81 Million/uL Hgb 14.4 g/dL Hct 42.4 % MCV 88.1 fL MCH 29.9 pg MCHC 34.0 Gram/dL Platelet Count 259 K/uL MPV 10.2 fL RDW 12.1 % Neut % 57.2 % Neut # 4.71 K/uL Lymph % 34.2 % Lymph # 2.81 x10(3)/uL [place] % 6.8 % [place] # 0.56 K/uL Eos % 0.9 % Eos # 0.07 x10(3)/uL Baso % 0.5 % Baso # 0.04 x10(3)/uL Slide Review No IG# 0.03 x10(3)/uL IG% 0.40 % Urine Type. U CleanCatch Urine Color Yellow Urine Appearance Clear Urine Specific [place] 1.008 Urine pH Dipstick 6.0 Urine Leukocyte Esterase Negative Urine Nitrite Negative Urine Protein Dipstick Negative Urine Glucose Dipstick Negative Urine Ketones Dipstick Negative Urine Urobilinogen Dipstick 0.2 EU/dL Urine Bilirubin Dipstick Negative Urine Blood Dipstick Negative Ur RBC 0-2 /HPF Ur WBC 0-2 /HPF Ur Bacteria Trace Ur Squamous Epithelial Cells 0-2 /HPF UDS pH 6.5 UDS Amp NEGATIVE UDS Zara NEGATIVE UDS Benzo NEGATIVE UDS Tima NEGATIVE UDS Opi NEGATIVE UDS PCP NEGATIVE UDS TCA NEGATIVE UDS THC NEGATIVE . Chest X-Ray: No acute disease process, interpretation by Emergency Physician. Notes: Patient is given warm blankets, light turned off and fluids, heart rate improved to a reading of 97. She is feeling somewhat better at discharge. There is no significant metabolic derangement, anemia or leukocytosis to suggest infectious process. Urinalysis negative for infection. Drug screen negative as well. Discharged home. Impression and Plan Diagnosis Panic attack - Discharge, Medical Plan Condition: Improved, Stable. Disposition: Discharged Admit/Transfer/Discharge: Discharge (Order): Start: 10/18/2018 6:33 EDT, Discharge to: Home. Patient was given the following educational materials: Panic Attack. Follow up with: ; Follow up with primary care provider Within 2 to 3 days Follow-up with your primary care provider in 2-3 days for reevaluation. Return to the emergency department for any acute worsening of symptoms or acute new concerns.. Counseled: Patient, Regarding diagnosis, Regarding diagnostic results, Regarding treatment plan, Patient indicated understanding of instructions. documented in this encounter Plan of Treatment Not on file documented as of this encounter Visit Diagnoses Not on filedocumented in this encounter
--- OUTSIDE RECORDS SUMMARY | 2024-11-18 00:12 | XMS_ITS | Clinical Summary ---
Author Organization [facility] Address [address] [place] [address] Phone Care Team Providers Care Fire Alarm Operator Name Role Phone Thiago Rincon MD Unavailable [ ] Conditions or Problems Problem Name Problem Code Onset Date Status Entry Date Provider Comment Standard Description Annotate ANXIETY 939574889 (SNOMED CT) 07/15 Active 07/15 Margaux Ledesma Anxiety disorder SEPSIS 38075965 (SNOMED CT) 05/18 Inactive 05/18 Margaux Ledesma Sepsis 82178685 (SNOMED CT) 05/18 Inactive 05/18 Margaux Ledesma ANEMIA 290877817 (SNOMED CT) 05/18 Inactive 05/18 Margaux Ledesma Anemia FEVER 352753695 (SNOMED CT) 05/18 Inactive 05/18 Margaux Ledesma Fever THIGH PAIN 11030028 (SNOMED CT) 07/15 Active 07/15 Margaux Ledesma Thigh pain RIGHT THIGH CELLULITIS 682.6 (ICD-9-CM) 05/18 Active 05/18 Margaux Ledesma Cellulitis and abscess of leg, except foot RIGHT THIGH CELLULITIS 682.6 (ICD-9-CM) 05/18 Correction 05/18 Yaa W Cellulitis and abscess of leg, except foot FEVER 554486839 (SNOMED CT) 05/18 Removed 05/18 Yaa W Fever SEPSIS 06323413 (SNOMED CT) 05/18 Removed 05/18 Yaa W Sepsis ANEMIA 347573549 (SNOMED CT) 05/18 Removed 05/18 Yaa W Anemia HX MRSA Z86.14 (ICD-10-CM ) 05/18 Active 05/18 Yaa W Personal history of Methicillin resistant Staphylococcus aureus infection 69705877 (SNOMED CT) 05/18 Removed 05/18 Yaa W Medications Medication Instructions Start Date Stop Date Generic Name NDC Provider CEFTRIAXONE SODIUM 1 GM SOLR 1 gram IV every 24 hours OP Oncology [facility] CEFTRIAXONE SODIUM [id number] Shasta Mckeon CEFTRIAXONE SODIUM 1 GM SOLR 1 gram IV every 24 hours OP Oncology [facility] CEFTRIAXONE SODIUM [id number] Shasta Mike HYDROCODONE-ACETA MINOPHEN 5-500 MG ORAL TABLET TK 1-2 TS PO Q 6 H PRN P HYDROCODONE-AC ETAMINOPHEN [id number] Marta Meng CUBICIN SOLUTION RECONSTITUTED 250mg IV q24 by butterfly at PRNU DAPTOMYCIN SOLR [id number] Marta Meng CEFTRIAXONE SODIUM 1 GM SOLR 1 gram IV every 24 hours [facility] CEFTRIAXONE SODIUM [id number] Marta Meng CUBICIN SOLUTION RECONSTITUTED 250mg IV q24 by butterfly at PRNU DAPTOMYCIN SOLR [id number] Yaa W Medications Administered No information available. Allergies, Adverse Reactions, Alerts Allergy Name Reaction Description Start Date Severity Statu s Provider TRAMADOL Critical Active Marta WALSHOFER Moderate Active Yaa W OXYCODONE Moderate Active Yaa W BETADINE Moderate Active Yaa W Results Date Name Value Unit Range Flag Description Clinical Lists Update: Prelo ad CIGARET SMKG yes Tobacco smoking status SMOK STATUS current every day smoker Tobacco smoking status Lab Report: Basic Metabolic Panel ANIONGAP 5 mmol/L 3-11 N anion gap, s fern GFR EST 286 mL/min estimated glomerular filtration rate CALCIUM 8.1 mg/dL 8.7-10.4 L Calcium [Moles/volume] in Serum or Plasma CO2 24 mmol/L 20-31 N Carbon dioxid e, total [Moles/volume] in Venous blood CHLORIDE 105 mmol/L 98-107 N Chloride [Moles/volume] in Serum or Plasma POTASSIUM 3.7 mmol/L 3.4-5.4 N Potassium [Moles/volume] in Serum or Plasma SODIUM 134 mmol/L 136-145 L Sodium [Moles/volume] in Serum or Plasma CREATININE 0.3 mg/dL 0.6-1.3 L Creatinine [Mass/volume] in Serum or Plasma BUN 5 mg/dL 6-20 L Urea nitrogen [Mass/volume] in Serum or Plasma GLUCOSE SER 77 mg/dL 70-100 N Glucose [Mass/volume] in Serum or Plasma Lab Report: C-Reactive Prote in CRPCARDRISK 5.800 mg/L 0.000-10.0 N C reac tive protein [Mass/volume] in Serum or Plasma Lab Report: CBC w Auto Diff IMM GRANU % 0.9 % 0.0-0.6 H Immature granulocytes/100 leukocytes in Blood BASOPHIL % 0.3 % 0.0-1.0 N Basophils/ 100 leukocytes in Blood by Manual count % EOS AUTO 1.1 % 0.0-3.0 N Eosinophil s/100 leukocytes in Blood by Automated count MONOCYTE BF 6.7 % 0.0-12.0 N monocyte s as percent of body fluid leukocytes LYMPHS % 20.0 % 24.0-44.0 L Lymphocyte s/100 leukocytes in Blood by Automated count PMN % 71.0 % 41.0-71.0 N Neutrophils /100 leukocytes in Blood by Automated count [id number] 0.0 GE use only - for [employer] import when terms are not otherwise specified BASOABSOLMAN 0.04 K/MCL {Cells}/uL 0.00-0.20 N basophils, absolute, manual EOS ABSLT 0.13 10*3/uL 0.10-0.30 N Eosinophi ls [#/volume] in Blood MONOCYTABMAN 0.77 K/MCL {Cells}/uL 0.00-1.00 N monocytes, absolute, manual LYMPHSABSMAN 2.30 K/MCL {Cells}/uL 0.60-4.80 N lymphocytes, absolute, manual ABS NEUTROPH 8.15 10*3/uL 1.50-8.30 N Neutro phils [#/volume] in Blood PLATELETS 222 10*3/mm3 150-450 N Platelets [#/volume] in Blood by Automated count RDW_ 17.9 11.3-14.5 H RDW, no uni ts MCHC 29.5 G/DL 32.0-36.0 L MCHC [Mass/volume] by Automated count MCH 22.0 pg 27.0-31.0 L MCH [Entiti c mass] by Automated count MCV 74.8 fL 80.0-99.0 L MCV [Entiti c volume] by Automated count HCT 23.4 % 34.5-44.0 L Hematocrit [Volume Fraction] of Blood by Automated count HGB 6.9 g/dL 11.5-15.5 L Hemoglobin [Mass/volume] in Blood RBC 3.13 M/MCL 10*6/mm3 3.89-5.14 L Erythro cytes [#/volume] in Blood by Automated count WBC 11.49 10*3/mm3 3.50-10.80 H Leukocyte s [#/volume] in Blood by Automated count Lab Report: Vancomycin Troug h VANCOMY CHAL 8.6 ug/mL 10.0-20.0 L vancom ycin level, serum, trough Plan of Care No information available. Procedures No information available. Vital Signs No information available. Immunizations No information available. Advance Directives No information available.
--- OUTSIDE RECORDS SUMMARY | 2024-11-18 00:12 | XMS_ITS | Encounter Summary ---
Author Organization [employer] ([place], [place], [place], [place]) Address [address] [place] [address] Care Team Providers Care Marketing Outreach Coordinator Name Role Phone Unavailable Primary Care Provider Unavailabl e Encounter Details Date Type Department Care Team (Late st Contact Info) Description 08/16/2020 Transcribed Document [facility] [place] [facility] [place] [address] ProviderNani MD [address] [place], [place] [address] Social History Tobacco Use Types Packs/Day Years Used Date Smoking Tobacco: Never Assessed Comments Unknown Sex and Gender Information Value Date Recorded Sex Assigned at Not on file Legal Sex Female 1:39 PM CDT Gender Identity Not on file Sexual Orientation Not on file documented as of this encounter Miscellaneous Notes * Cerner Conversion Note - Historical ProviderMD - 08/16/2020 7:59 PM CDT Electronically signed by Oracio, [facility] Conversion Senior Catering Sales Manager Toddner at 05/25/2022 6:53 PM CDT documented in this encounter Plan of Treatment Not on file documented as of this encounter Visit Diagnoses Not on filedocumented in this encounter
--- OUTSIDE RECORDS SUMMARY | 2024-11-18 00:12 | XMS_ITS | Encounter Summary ---
Author Organization [employer] ([place], [place], [place], [place]) Address [address] [place] [address] Care Team Providers Care Museum Informatics Specialist Name Role Phone Unavailable Primary Care Provider Unavailabl e Encounter Details Date Type Department Care Team (Late st Contact Info) Description 08/16/2020 Transcribed Document [facility] [place] [address] [place] [address] ProviderNani MD [address] [place] [address] [id number] Social History Tobacco Use Types Packs/Day Years Used Date Smoking Tobacco: Never Assessed Comments Unknown Sex and Gender Information Value Date Recorded Sex Assigned at Not on file Legal Sex Female 1:39 PM CDT Gender Identity Not on file Sexual Orientation Not on file documented as of this encounter Miscellaneous Notes * Cerner Conversion Note - Historical ProviderMD - 08/16/2020 4:55 PM CDT ED Triage Entered On: 08/16/2020 17:13 EDT Performed On: 08/16/2020 17:08 EDT by Tabitha Rucker RN-PATIENT CARE BEDSIDE NON-EXEMPT ED Triage Across the Room Chief Complaint : pt c/o soa, cough, sore throat and body aches x2 days. pt denies being around anyone with covid Triage Date/Time : 08/16/2020 17:08 EDT Tabitha Rucker RN-PATIENT CARE BEDSIDE NON-EXEMPT - 08/16/2020 17:08 EDT Tabitha Rucker RN-PATIENT CARE BEDSIDE NON-EXEMPT - 08/16/2020 17:08 EDT DCP GENERIC CODE Tracking Group : [facility] ED Tabitha Rucker RN-PATIENT CARE BEDSIDE NON-EXEMPT - 08/16/2020 17:08 EDT Tracking Acuity : 3 - Urgent Tabitha Rucker RN-PATIENT CARE BEDSIDE NON-EXEMPT - 08/16/2020 17:40 EDT Mode of Arrival : Ambulatory Transported to ED by : Walk in To Room Via : Ambulate Accompanied By : Significant other ED Vital Signs : Document Height & Weight : Document ED Allergies : Document ED Reason for Visit : Document Tetanus Immunization : None received Tabitha Rucker RN-PATIENT CARE BEDSIDE NON-EXEMPT - 08/16/2020 17:08 EDT Infectious Disease History Has the patient ever been tested for COVID-19? : Yes, Patient stated results Negative Date of COVID-19 test known? : No Does patient have symptoms of COVID-19? : Yes COVID19 Screening : No Experiencing Infectious Disease Symptoms : Difficulty breathing, Sore throat Physical contact outside [place] in the last 30 days : No Infectious Disease History : Chicken pox/Shingles, MRSA Tuberculosis Symptoms : None Tabitha Rucker RN-PATIENT CARE BEDSIDE NON-EXEMPT - 08/16/2020 17:08 EDT Vital Signs ED Temperature Source : Tympanic Temperature Mode : Fahrenheit Temperature, Fahrenheit : 99.4 Deg F Clinical Temperature, C : 37.4 Deg C Oxygen Therapy Mode : Room air Peripheral Pulse Rate : 114 bpm (HI) Respiratory Rate : 18 Breaths/Min Systolic Blood Pressure : 125 mmHg Diastolic Blood Pressure : 83 mmHg Oxygen Saturation : 97 % Tabitha Rucker RN-PATIENT CARE BEDSIDE NON-EXEMPT - 08/16/2020 17:08 EDT Allergy (As Of: 08/16/2020 17:13:18 EDT) Allergies (Active) iron polysaccharide Estimated Onset Date: Unspecified ; Created By: CONTRIBUTOR_SYSTEMJOSE; Reaction Status: Active ; Category: Drug ; Substance: iron polysaccharide ; Type: Allergy ; Updated By: JOSE BELLE; Reviewed Date: 10/18/2018 6:33 EDT oxyCODONE Estimated Onset Date: Unspecified ; Created By: JOSE BELLE; Reaction Status: Active ; Category: Drug ; Substance: oxyCODONE ; Type: Allergy ; Updated By: JOSE BELLE; Reviewed Date: 10/18/2018 6:33 EDT povidone iodine topical Estimated Onset Date: Unspecified ; Created By: CONTRIBUTOR_SYSTEMJOSE; Reaction Status: Active ; Category: Drug ; Substance: povidone iodine topical ; Type: Allergy ; Updated By: CONTRIBUTOR_SYSTEMJOSE; Reviewed Date: 10/18/2018 6:33 EDT traMADol Estimated Onset Date: Unspecified ; Created By: CONTRIBUTOR_SYSTEMJOSE; Reaction Status: Active ; Category: Drug ; Substance: traMADol ; Type: Allergy ; Updated By: CONTRIBUTOR_SYSTEMJOSE; Reviewed Date: 10/18/2018 6:33 EDT Diagnosis Control ED (As Of: 08/16/2020 17:13:18 EDT) Problems(Active) Abscess (SNOMED CT :782627488 ) Name of Problem: Abscess ; Recorder: TAWANDA DIETZ RN; Confirmation: Confirmed ; Classification: Medical ; Code: [id number] ; Contributor System: KeniuChart ; Last Updated: 07/17/2013 19:32 EDT ; Life Cycle Date: 10/24/2012 ; Life Cycle Status: Active ; Vocabulary: SNOMED CT Anxiety (SNOMED CT :80505105 ) Name of Problem: Anxiety ; Recorder: CLAUDIA GALVEZ RN; Confirmation: Confirmed ; Classification: Medical ; Code: [id number] ; Contributor System: KeniuChart ; Last Updated: 07/17/2013 19:32 EDT ; Life Cycle Date: 10/07/2012 ; Life Cycle Status: Active ; Vocabulary: SNOMED CT Endometriosis (SNOMED CT :8074654995 ) Name of Problem: Endometriosis ; Recorder: CLAUDIA GALVEZ RN; Confirmation: Confirmed ; Classification: Medical ; Code: [id number] ; Contributor System: PowerChart ; Last Updated: 07/17/2013 19:32 EDT ; Life Cycle Date: 10/07/2012 ; Life Cycle Status: Active ; Vocabulary: SNOMED CT Irregular heart rate (SNOMED CT :046622537 ) Name of Problem: Irregular heart rate ; Recorder: Partha Theodore RN; Confirmation: Confirmed ; Classification: Medical ; Code: [id number] ; Contributor System: PowerChart ; Last Updated: 08/13/2017 0:54 EDT ; Life Cycle Date: 08/13/2017 ; Life Cycle Status: Active ; Vocabulary: SNOMED CT MRSA (SNOMED CT :645744313 ) Name of Problem: MRSA ; Recorder: CLAUDIA GALVEZ RN; Confirmation: Confirmed ; Classification: Medical ; Code: [id number] ; Contributor System: VideoJax ; Last Updated: 07/22/2013 11:03 EDT ; Life Cycle Date: 10/07/2012 ; Life Cycle Status: Active ; Vocabulary: SNOMED CT ; Comments: 10/07/2012 19:42 - CLAUDIA GALVEZ RN hx Panic disorder (SNOMED CT :4386814848 ) Name of Problem: Panic disorder ; Recorder: DEVIKA LOZOYA RN; Confirmation: Confirmed ; Classification: Medical ; Code: [id number] ; Contributor System: VideoJax ; Last Updated: 07/17/2013 19:32 EDT ; Life Cycle Date: 11/10/2012 ; Life Cycle Status: Active ; Vocabulary: SNOMED CT Diagnoses(Active) Shortness of breath Date: 08/16/2020 ; Diagnosis Type: Reason For Visit ; Confirmation: Complaint of ; Clinical Dx: Shortness of breath ; Classification: Medical ; Clinical Service: Non-Specified ; Code: PNED ; Probability: 0 ; Diagnosis Code: [id number] ED Height and Weight Height Source : Stated Height Entry Format : [place] Height, Feet : 5 ft(Converted to: 152 cm, 60 Inch) Height, Inches : 3 Inch(Converted to: 0 ft 3 Inch, 7.62 cm) Clinical Height : 160.02 cm Weight Source, ED : Critical estimated dosing weight Weight Entry Format : [place] Weight, Pounds : 110 lb Clinical Dosing Weight : 50 kg Body Surface Area (BSA) : 1.5 m2 Body Mass Index : 19.5 kg/m2 [place] Body Weight (IBW) : 52.02 kg Tabitha Rucker RN-PATIENT CARE BEDSIDE NON-EXEMPT - 08/16/2020 17:08 EDT documented in this encounter Plan of Treatment Not on file documented as of this encounter Visit Diagnoses Not on filedocumented in this encounter
--- OUTSIDE RECORDS SUMMARY | 2024-11-18 00:12 | XMS_ITS | Encounter Summary ---
Author Organization [employer] ([place], [place], [place], [place]) Address [address] [place] [address] Care Team Providers Care Attache Name Role Phone Unavailable Primary Care Provider Unavailabl e Encounter Details Date Type Department Care Team (Late st Contact Info) Description 09/04/2018 Transcribed Document [facility] [place] Family Medicine [address] [place] [address] ProviderNani MD [address] [place] [address] Social History Tobacco Use Types Packs/Day Years Used Date Smoking Tobacco: Never Assessed Comments Unknown Sex and Gender Information Value Date Recorded Sex Assigned at Not on file Legal Sex Female 1:39 PM CDT Gender Identity Not on file Sexual Orientation Not on file documented as of this encounter Miscellaneous Notes * Cerner Conversion Note - Nani Campos MD - 09/04/2018 8:05 PM CDT [facility] [place], [place] [id number] KATHERIN WILSON :1985 Visit Time:09/04/2018 Your Visit Summary Your Care Team Admitting Physician - PAU SEVILLA MD PHY, UNKNOWN Attending Physician - PAU SEVILLA MD Primary Care Physician - MARILYN, NO Referring Physician - PAU SEVILLA MD Your Diagnosis Anxiety Anxiety Panic attack Medical Information You may [...] do next Follow-Up Appointments Follow Up with RO S[facility] When 09/18/2018 02:30 AM EDT Comments Appointment has been made. Please arrive 30 [...] please call the Patient Resource Center at . Where: [address] [place] [address]- Follow Up with Return to Emergency Department When Within As needed Follow Up with Follow up with primary care provider When Within 2 to 3 days Follow Up with Patient Resource Center When Within 2 to 3 days Comments For further assistance with your Primary Care Physician please contact the Patient Resource Center at [phone]. Follow Up with NO PRIM DR SANDERS When Within 2 to 3 days Allergies iron polysaccharide oxyCODONE povidone iodine topical [...] This Visit (last charted value for your 09/04/2018 visit) Hematology 09/04/18 16:32:00 WBC: 8.1 K/uL -- Normal range between ( 4.5 and 10.5 ) RBC: 4.53 Million/uL -- Normal range between ( 3.93 and 5.22 ) Hct: 40.8 % -- Normal range between ( 34.1 and 44.9 ) Hgb: 13.5 g/dL -- Normal range between ( 11.2 and 15.7 ) Platelet Count: 250 K/uL -- Normal range between ( 163 and 369 ) MCH: 29.8 pg -- Normal range between ( 25.6 and 32.2 ) MCHC: 33.1 Gram/dL -- Normal range between ( 32.2 and 36.5 ) MCV: 90.1 fL -- Normal range between ( 79.0 and 94.8 ) Slide Review: No Eos %: 1.6 % -- Normal range between ( 0.0 and 7.0 ) Glacier #: 0.61 K/uL -- Normal range between ( 0.16 and 1.00 ) Eos #: 0.13 x10(3)/uL -- Normal range between ( 0.00 and 0.80 ) Glacier %: 7.6 % -- Normal range between ( 3.0 and 9.0 ) Baso %: 1.0 % -- Normal range between ( 0.0 and 1.5 ) Baso #: 0.08 x10(3)/uL -- Normal range between ( 0.00 and 0.20 ) RDW: 12.5 % -- Normal range between ( 11.7 and 14.9 ) Neut %: 44.9 % -- Normal range between ( 34.0 and 71.0 ) Neut #: 3.63 K/uL -- Normal range between ( 1.56 and 6.13 ) Lymph %: 44.5 % -- Normal range between ( 19.3 and 53.1 ) Lymph #: 3.59 x10(3)/uL -- Normal range between ( 1.00 and 3.90 ) MPV: 10.8 fL -- Normal range between ( 9.4 and 12.4 ) IG#: 0.03 x10(3)/uL -- Normal range between ( 0.00 and 0.05 ) IG%: 0.40 % -- Normal range between ( 0.00 and 0.60 ) General Chemistry 09/04/18 16:32:00 Creatinine Level: 0.70 mg/dL -- Normal range between ( 0.55 and 1.02 ) Sodium Level: 138 mmol/L -- Normal range between ( 136 and 146 ) Potassium Level: 3.1 mmol/L -- Normal range between ( 3.5 and 5.1 ) Chloride Level: 105 mmol/L -- Normal range between ( 102 and 112 ) Carbon Dioxide Level: 23 mmol/L -- Normal range between ( 21 and 32 ) Anion Gap: 13 -- Normal range between ( 9 and 20 ) Bilirubin Total: 0.2 mg/dL -- Normal range between ( 0.2 and 1.2 ) A/G Ratio: 1.3 -- Normal range between ( 1.1 and 2.5 ) ALT: 19 Units/Liter -- Normal range between ( 13 and 56 ) AST: 25 Units/Liter -- Normal range between ( 5 and 37 ) Globulin: 3.4 Gram/dL -- Normal range between ( 1.5 and 4.5 ) Alk Phos: 86 Units/Liter -- Normal range between ( 27 and 136 ) Bun/Creatinine: 10.0 -- Normal range between ( 8.0 and 20.0 ) Calcium Level: 8.9 mg/dL -- Normal range between ( 8.4 and 10.1 ) eGFR : >60 mL/min/1.73m2 eGFR NonAfrican: >60 mL/min/1.73m2 Glucose Level: 105 mg/dL -- Normal range between ( 74 and 106 ) Blood Urea Nitrogen: 7 mg/dL -- Normal range between ( 7 and 22 ) Protein Total: 7.7 Gram/dL -- Normal range between ( 6.4 and 8.2 ) Albumin Level: 4.3 Gram/dL -- Normal range between ( 3.4 and 5.0 ) Cardiac Specific Markers 09/04/18 16:32:00 Troponin I Ultra: <0.015 ng/mL -- Normal range between ( 0.015 and 0.045 ) Coagulation 09/04/18 16:32:00 D Dimer Quant: See Comment mg/L FEU -- Normal range between ( 0.00 and 0.58 ) Education Materials Panic Attack A panic attack [...] problems, neurological conditions, and infections. ??? Certain ifed-olj-fkfzqts and prescription medicines. ??? Illegal drugs that [...] Follow these instructions at home: ??? Take fooz-gdr-rrjnphg and prescription medicines only as told by [...] 01/22/2006 Document Revised: 03/02/2017 Document Reviewed: 03/02/2017 [employer] Interactive Patient Education ?? 2019 [employer]. Emergency Awareness and Preventative Care STROKE is [...] Assistance with quitting is available by contacting 4-177-GPSCWeaver LabsNOW. This is a free resource providing counseling, support, and referral. Or you may contact your personal physician. National Suicide Prevention Lifeline: The National Suicide Prevention [...] CPR? There are two easy steps: Call if you see a teen or adult [...] was given the opportunity to ask questions. Patient/Acute Dialysis Registered Nurse Name: Patient/Acute Dialysis Registered Nurse Signature: Relationship to Patient: Clinician/Hospital Acute Dialysis Registered Nurse Signature: Please Provide a Telephone Number Where You Can Be Reached: Is it Permissible To Leave a Message? Date: Electronically signed by Oracio, [facility] Conversion Meat Supervisor Yesenia at 05/25/2022 6:53 PM CDT documented in this encounter Plan of Treatment Not on file documented as of this encounter Visit Diagnoses Not on filedocumented in this encounter
--- OUTSIDE RECORDS SUMMARY | 2024-11-18 00:12 | XMS_ITS | Encounter Summary ---
Author Organization [employer] ([place], [place], [place], [place]) Address [address] [place] [address] Care Team Providers Care Capacity Planning Engineer Name Role Phone Unavailable Primary Care Provider Unavailabl e Encounter Details Date Type Department Care Team (Late st Contact Info) Description 08/16/2020 Transcribed Document [facility] [place] Family [place] [facility] [place] [address] ProviderNani MD [address] [place] [phone] Social History Tobacco Use Types Packs/Day Years [...] ProviderMD - 08/16/2020 4:55 PM CDT ED Assessment Entered On: 08/16/2020 18:29 EDT Performed On: 08/16/2020 18:28 EDT by Ninfa Clancy RN ED Quick Look Assessment Level of Consciousness : Alert, Awake Affect/Behavior : Appropriate, Calm Orientation : Oriented x 4 Skin Temperature : Warm Skin Description : Normal for ethnicity Ninfa Clancy RN - 08/16/2020 18:28 EDT ED General-Functional Assess Information Obtained From : Patient Preferred Communication Mode : Verbal Communication Barrier : None Primary Language : [place] Any Spiritual/Cultural Needs or Requests : No Currently in Unsafe Situation : No Ninfa Clancy RN - 08/16/2020 18:28 EDT Social Habits Smoking Status : Never (less than 100 in lifetime; none in last 30 days) Smokeless Tobacco Status : Never Desires Tobacco Cessation Calc : 0 Ninfa Clancy RN - 08/16/2020 18:28 EDT Social History (As Of: 08/16/2020 18:29:08 EDT) Tobacco: Use in Last 12 Months: Cigarettes. Smoking Status Current every day smoker. Packs/Tins Daily: 1. (Last Updated: 10/07/2012 19:43:34 EDT by CLAUDIA GALVEZ, RN) Alcohol: Use in Last 12 Months: No. (Last Updated: 10/07/2012 19:43:23 EDT by CLAUDIA GALVEZ RN) Substance Abuse: Drug Use Hx: No. Use in Last 12 Months: No. (Last Updated: 10/07/2012 19:43:27 EDT by CLAUDIA GALVEZ RN) Home/Environment: Lives with Children, Significant other. Living situation: Home/Independent. (Last Updated: 12/19/2012 06:42:31 EST by MARJORIE LOPEZ PA) Respiratory Respiratory Assessment WDL : WDL with exceptions (Comment: pt c/o sob, cough, body aches, and sore throat X 2 days. pt is in no distress upon assessment. [Ninfa Clancy RN - 08/16/2020 18:28 EDT] ) Cough : Dry Ninfa Clancy RN - 08/16/2020 18:28 EDT documented in this encounter Plan of Treatment Not on file documented as of this encounter Visit Diagnoses Not on filedocumented in this encounter
--- OUTSIDE RECORDS SUMMARY | 2024-11-18 00:12 | XMS_ITS | Encounter Summary ---
Author Organization [employer] ([place], [place], [place], [place]) Address [address] [place] [address] Care Team Providers Care Car Icer Name Role Phone Unavailable Primary Care Provider Unavailabl e Encounter Details Date Type Department Care Team (Late st Contact Info) Description 09/04/2018 Transcribed Document [facility] [place] [address] [place] [address] ProviderNani MD [address] [place] [phone] Social History Tobacco Use Types Packs/Day Years Used Date Smoking Tobacco: Never Assessed Comments Unknown Sex and Gender Information Value Date Recorded Sex Assigned at Not on file Legal Sex Female 1:39 PM CDT Gender Identity Not on file Sexual Orientation Not on file documented as of this encounter Miscellaneous Notes * Cerner Conversion Note - Historical ProviderMD - 09/04/2018 3:24 PM CDT ED Triage Entered On: 09/04/2018 15:41 EDT Performed On: 09/04/2018 15:34 EDT by PAUL REINOSO RN ED Triage Across the Room Triage Date/Time : 09/04/2018 15:34 EDT Chief Complaint : Pt presents to the ER stating she is having a panic attack. Woke up this morning anxious. Pt jittery in triage. HR 150 in triage. Denies chest pain . PAUL REINOSO RN - 09/04/2018 15:34 EDT DCP GENERIC CODE Tracking Acuity : 3 - Urgent Tracking Group : [facility] ED PAUL REINOSO RN - 09/04/2018 15:34 EDT Mode of Arrival : Ambulatory Transported to ED by : Walk in To Room Via : Ambulate Accompanied By : Unaccompanied ED Vital Signs : Document Height & Weight : Document ED Allergies : Document ED Reason for Visit : Document Tetanus Immunization : None received PAUL REINOSO RN - 09/04/2018 15:34 EDT Infectious Disease History Infectious Disease History : Chicken pox/Shingles, MRSA Fever/Chills Last 48 Hours : No Travel To Regions with Travel Advisories : No Travel Outside [place] Within Last 30 Days : No Contact With Traveler to Advisory Region : No Tuberculosis Symptoms : None PAUL REINOSO RN - 09/04/2018 15:34 EDT Vital Signs ED Temperature Source : Oral Temperature Mode : Fahrenheit Oxygen Therapy Mode : Room air Peripheral Pulse Rate : 150 bpm (HI) Respiratory Rate : 16 Breaths/Min Systolic Blood Pressure : 123 mmHg Diastolic Blood Pressure : 84 mmHg Oxygen Saturation : 100 % PAUL REINOSO RN - 09/04/2018 15:34 EDT Allergy (As Of: 09/04/2018 15:41:42 EDT) Allergies (Active) iron polysaccharide Estimated Onset Date: Unspecified ; Created By: JOSE Amin; Reaction Status: Active ; Category: Drug ; Substance: iron polysaccharide ; Type: Allergy ; Updated By: JOSE Amin; Reviewed Date: 09/04/2018 15:36 EDT oxyCODONE Estimated Onset Date: Unspecified ; Created By: JOSE Amin; Reaction Status: Active ; Category: Drug ; Substance: oxyCODONE ; Type: Allergy ; Updated By: JOSE Amin; Reviewed Date: 09/04/2018 15:36 EDT povidone iodine topical Estimated Onset Date: Unspecified ; Created By: JOSE Amin; Reaction Status: Active ; Category: Drug ; Substance: povidone iodine topical ; Type: Allergy ; Updated By: JOSE Amin; Reviewed Date: 09/04/2018 15:36 EDT traMADol Estimated Onset Date: Unspecified ; Created By: JOSE Amin; Reaction Status: Active ; Category: Drug ; Substance: traMADol ; Type: Allergy ; Updated By: JOSE Amin; Reviewed Date: 09/04/2018 15:36 EDT Diagnosis Control ED (As Of: 09/04/2018 15:41:42 EDT) Problems(Active) Abscess (SNOMED CT :768769362 ) Name of Problem: Abscess ; Recorder: TAWANDA DIETZ RN; Confirmation: Confirmed ; Classification: Medical ; Code: 532393359 ; Contributor System: PowerChart ; Last Updated: 07/17/2013 19:32 EDT ; Life Cycle Date: 10/24/2012 ; Life Cycle Status: Active ; Vocabulary: SNOMED CT Anxiety (SNOMED CT :96958000 ) Name of Problem: Anxiety ; Recorder: CLAUDIA GALVEZ RN; Confirmation: Confirmed ; Classification: Medical ; Code: [id number] ; Contributor System: PowerChart ; Last Updated: 07/17/2013 19:32 EDT ; Life Cycle Date: 10/07/2012 ; Life Cycle Status: Active ; Vocabulary: SNOMED CT Endometriosis (SNOMED CT :6223109150 ) Name of Problem: Endometriosis ; Recorder: CLAUDIA GALVEZ RN; Confirmation: Confirmed ; Classification: Medical ; Code: [id number] ; Contributor System: PowerChart ; Last Updated: 07/17/2013 19:32 EDT ; Life Cycle Date: 10/07/2012 ; Life Cycle Status: Active ; Vocabulary: SNOMED CT Irregular heart rate (SNOMED CT :891676398 ) Name of Problem: Irregular heart rate ; Recorder: Partha Theodore RN; Confirmation: Confirmed ; Classification: Medical ; Code: [id number] ; Contributor System: PowerChart ; Last Updated: 08/13/2017 0:54 EDT ; Life Cycle Date: 08/13/2017 ; Life Cycle Status: Active ; Vocabulary: SNOMED CT MRSA (SNOMED CT :635665350 ) Name of Problem: MRSA ; Recorder: CLAUDIA GALVEZ RN; Confirmation: Confirmed ; Classification: Medical ; Code: [id number] ; Contributor System: PowerChart ; Last Updated: 07/22/2013 11:03 EDT ; Life Cycle Date: 10/07/2012 ; Life Cycle Status: Active ; Vocabulary: SNOMED CT ; Comments: 10/07/2012 19:42 - CLAUDIA GALVEZ RN hx Panic disorder (SNOMED CT :0547746078 ) Name of Problem: Panic disorder ; Recorder: DEVIKA LOZOYA RN; Confirmation: Confirmed ; Classification: Medical ; Code: [id number] ; Contributor System: PowerChart ; Last Updated: 07/17/2013 19:32 EDT ; Life Cycle Date: 11/10/2012 ; Life Cycle Status: Active ; Vocabulary: SNOMED CT Diagnoses(Active) Anxiety Date: 09/04/2018 ; Diagnosis Type: Reason For Visit ; Confirmation: Complaint of ; Clinical Dx: Anxiety ; Classification: Medical ; Clinical Service: Emergency medicine ; Code: PNED ; Probability: 0 ; Diagnosis Code: [id number] ED Height and Weight Height Source : Stated Height Entry Format : [place] Height, Feet : 4 ft(Converted to: 122 cm, 48 Inch) Height, Inches : 11 Inch(Converted to: 0 ft 11 Inch, 27.94 cm) Clinical Height : 149.86 cm Weight Source, ED : Critical estimated dosing weight Weight Entry Format : [place] Weight, Pounds : 110 lb Clinical Dosing Weight : 50 kg Body Surface Area (BSA) : 1.43 m2 Body Mass Index : 22.3 kg/m2 [place] Body Weight (IBW) : 42.87 kg PAUL REINOSO RN - 09/04/2018 15:34 EDT documented in this encounter Plan of Treatment Not on file documented as of this encounter Visit Diagnoses Not on filedocumented in this encounter
--- OUTSIDE RECORDS SUMMARY | 2024-11-18 00:12 | XMS_ITS | Encounter Summary ---
Author Organization [employer] ([place], [place], [place], [place]) Address [address] [place] [address] Care Team Providers Care Computer Application Developer Name Role Phone Unavailable Primary Care Provider Unavailabl e Encounter Details Date Type Department Care Team (Late st Contact Info) Description 08/16/2020 Transcribed Document [facility] [place] [address] [place] [address] ProviderNani MD [address] [place], [place] [id number] Social History Tobacco Use Types Packs/Day Years Used Date Smoking Tobacco: Never Assessed Comments Unknown Sex and Gender Information Value Date Recorded Sex Assigned at Not on file Legal Sex Female 1:39 PM CDT Gender Identity Not on file Sexual Orientation Not on file documented as of this encounter Miscellaneous Notes * Cerner Conversion Note - Historical ProviderMD - 08/16/2020 4:55 PM CDT Broset Violence Assessment Entered On: 08/16/2020 17:13 EDT Performed On: 08/16/2020 17:08 EDT by Tabitha Rucker RN-PATIENT CARE BEDSIDE NON-EXEMPT Broset Violence Assessment Broset Violence Checklist of Symptoms : None Broset Violence Symptoms Subtotal : 0 Broset Violence Symptoms Indicator : Low risk (0) Tabitha Rucker RN-PATIENT CARE BEDSIDE NON-EXEMPT - 08/16/2020 17:08 EDT Electronically signed by Jeane Narayanan Conversion Supercalender Operator Helper Cerner at 05/25/2022 6:49 PM CDT documented in this encounter Plan of Treatment Not on file documented as of this encounter Visit Diagnoses Not on filedocumented in this encounter
--- OUTSIDE RECORDS SUMMARY | 2024-11-18 00:12 | XMS_ITS | Encounter Summary ---
Author Organization [email or web address] ([place], [place], [place], [place]) Address [address] [place] [address] Care Team Providers Care Passenger Rate Clerk Name Role Phone Unavailable Primary Care Provider Unavailabl e Encounter Details Date Type Department Care Team (Late st Contact Info) Description 06/17/2018 Transcribed Document [facility] [place] [facility] [place] [address] ProviderNani MD [address] [place], [place] [address] Social History Tobacco Use Types Packs/Day Years Used Date Smoking Tobacco: Never Assessed Comments Unknown Sex and Gender Information Value Date Recorded Sex Assigned at Not on file Legal Sex Female 1:39 PM CDT Gender Identity Not on file Sexual Orientation Not on file documented as of this encounter Miscellaneous Notes * Cerner Conversion Note - Historical ProviderMD - 06/17/2018 7:03 PM CDT Electronically signed by Oracio [facility] Conversion Coin Machine Collector Cerner at 05/25/2022 6:47 PM CDT documented in this encounter Plan of Treatment Not on file documented as of this encounter Visit Diagnoses Not on filedocumented in this encounter
--- OUTSIDE RECORDS SUMMARY | 2024-11-18 00:12 | XMS_ITS | Encounter Summary ---
Author Organization [employer] ([place], [place], [place], [place]) Address [address] [place] [address] Care Team Providers Care Program Manager Rn Name Role Phone Unavailable Primary Care Provider Unavailabl e Encounter Details Date Type Department Care Team (Late st Contact Info) Description 10/18/2018 Transcribed Document [facility] [place] Family Medicine [facility] [place] [address] ProviderNani MD [address] [place] [phone] Social History Tobacco Use Types Packs/Day Years Used Date Smoking Tobacco: Never Assessed Comments Unknown Sex and Gender Information Value Date Recorded Sex Assigned at Not on file Legal Sex Female 1:39 PM CDT Gender Identity Not on file Sexual Orientation Not on file documented as of this encounter Miscellaneous Notes * Cerner Conversion Note - Historical ProviderMD - 10/18/2018 6:33 AM CDT Electronically signed by Oracio [facility] Conversion Senior Financial Consultant Cerner at 05/25/2022 6:48 PM CDT documented in this encounter Plan of Treatment Not on file documented as of this encounter Visit Diagnoses Not on filedocumented in this encounter
--- OUTSIDE RECORDS SUMMARY | 2024-11-18 00:12 | XMS_ITS | Encounter Summary ---
Author Organization [employer] ([place], [place], [place], [place]) Address [address] [place] [address] Care Team Providers Care Pattern Duplicator Name Role Phone Unavailable Primary Care Provider Unavailabl e Encounter Details Date Type Department Care Team (Late st Contact Info) Description 09/04/2018 Transcribed Document [facility] [place] [facility] [address] ProviderNani MD [address] [place], [place] [address] Social History Tobacco Use Types Packs/Day Years Used Date Smoking Tobacco: Never Assessed Comments Unknown Sex and Gender Information Value Date Recorded Sex Assigned at Not on file Legal Sex Female 1:39 PM CDT Gender Identity Not on file Sexual Orientation Not on file documented as of this encounter Miscellaneous Notes * [employer]ner Conversion Note - Historical ProviderMD - 09/04/2018 8:04 PM CDT Electronically signed by Oracio [facility] Conversion Waistline Joiner Cerner at 05/25/2022 6:49 PM CDT documented in this encounter Plan of Treatment Not on file documented as of this encounter Visit Diagnoses Not on filedocumented in this encounter
--- OUTSIDE RECORDS SUMMARY | 2024-11-18 00:13 | XMS_ITS | Encounter Summary ---
Author Organization [facility] Address [address] [place] [address] Care Team Providers Care Agricultural Lender Name Role Phone Hyacinth Mendiola MD Primary Care Provider + Encounter Details Date Type Department Care Team (Late st Contact Info) Description 11/25/2020 Community [facility] [address] [place] [address] Tanmay Arellano MD [address] [place] [id number] Pain in right leg (Primary Dx) Social History Tobacco Use Types Packs/Day Years Used Date Smoking Tobacco: Never Assessed Comments Unknown Sex and Gender Information Value Date Recorded Sex Assigned at Female 02/08/2023 12:31 PM EST Legal Sex Female 8:50 PM EDT Gender Identity Female 02/08/2023 12:31 PM EST Sexual Orientation Not on file documented as of this encounter Plan of Treatment Not on file documented as of this encounter Visit Diagnoses Diagnosis Pain in right leg- Primary documented in this encounter Additional Health Concerns Infection Onset Date Last Indicated Resolved Time COVID-19 Rule-Out 11/29/2020 11/29/2020 11/29/2020 8:42 PM EDT documented as of this encounter Care Teams Agricultural Lender Relationship Specialty Start Date End Date Hyacinth Mendiola MD [address] [facility] [address] [place] [address] PCP - General 06/18/20 documented as of this encounter
--- OUTSIDE RECORDS SUMMARY | 2024-11-18 00:13 | XMS_ITS | Clinical Summary ---
Author Organization [facility] Address [address] [id number] Care Team Providers Care Crib Clerk Name Role Phone Hyacinth Mendiola MD Primary Care Provider + Allergies Active Allergy Reactions Criticality Noted Date Comments Povidone Iodine Hives,Other - please document in the comment field High 05/04/2009 PT REPORTS TOLD ALLERGIC WHEN SHE CAME OUT OF SURGERY contact Medications ketorolac (Toradol) 10 MG tablet Take 1 tablet (10 mg) by mouth every 6 (six) hours if needed for moderate pain. 20 tablet 02/08/2023 Active Immunizations Immunization Administration Dates Next Due MMR 09/17/2008 Social History Tobacco Use Types Packs/Day Years Used Date Smoking Tobacco: Every Day Cigarettes Tobacco Cessation:Ready to Q uit: Not Asked; Counseling Given: Not Answered Alcohol Use Standard Drinks/Week Comments Not Currently 0 (1 standard drink = 0.6 oz pur e alcohol) Comments Unknown Sex and Gender Information Value Date Recorded Sex Assigned at Female 02/08/2023 12:31 PM EST Legal Sex Female 8:50 PM EDT Gender Identity Female 02/08/2023 12:31 PM EST Sexual Orientation Not on file Last Filed Vital Signs Vital Sign Reading Time Taken Comments Blood Pressure 115/66 02/08/2023 12:31 PM EST Pulse 94 02/08/2023 12:31 PM EST Temperature 37.3 C (99.1 F) 02/08/2023 10:29 AM EST Respiratory Rate 14 02/08/2023 12:31 PM EST Oxygen Saturation 95% 02/08/2023 12:31 PM EST Inhaled Oxygen Concentration - - Weight 45.7 kg (100 lb 12 oz) 02/08/2023 5:53 AM EST Height 149.9 cm (4' 11 ) 11/29/2020 3:54 PM EDT Body Mass Index 20.35 11/29/2020 3:54 PM EDT Plan of Treatment Health Maintenance Due Date Last Done Comments [facility]-Depression Screening 1985 [facility]-/Child/Adol SDOH Screenings 1985 [facility]- SDOH Screenings 2004 [facility]-Adult SDOH Screenings 2004 [facility]-Hepatitis B Vaccines (1 of 3 - 19+ 3-dose series) 2005 [facility]-Varicella Vaccines (1 of 2 - 13+ 2-dose series) 10/15/2008 HPV Vaccines (1 - 3-dose SCDM series) 2013 [facility]-Pap Smear 01/19/2014 01/19/2011, 06/15/2008 [facility]-Cervical Cancer Screening 2016 [facility]-HPV/Cotest 2016 01/19/2011, 06/15/2008 [facility]-OTFOF-12 Vaccine (1 - season) 2024 [facility]-Influenza Vaccine (#1) 2024 [facility]-DTaP,Tdap,and Td Vaccines (2 - Td or Tdap) 11/19/2028 11/19/2018 [facility]-Zoster Vaccines (1 of 2) 2036 [facility]-HIV Screening Completed 02/08/2023, 06/20/2013 [facility]-Hepatitis C Screening Completed 2023, 08/24/2017, 06/20/2013 [facility]-HIB Vaccines Aged Out No longer e ligible based on patient's age to complete this topic [facility]-Hepatitis A Vaccines Aged Out No longer eligible based on patient's age to complete this topic [facility]-IPV Vaccines Aged Out No longer e ligible based on patient's age to complete this topic [facility]-Pneumococcal Vaccine: Pediatrics (0 to 5 Years) and At-Risk Patients (6 to 49 Years) Aged Out No longer eligible b ased on patient's age to complete this topic [facility]-Rotavirus Vaccines Aged Out No lo nger eligible based on patient's age to complete this topic Procedures Procedure Name Priority Date/Time Associated Diagnosis Comments HEPATITIS C ANTIBODY - ED W/REFLEX TO HCV QUANT PCR STAT 02/08/2023 2:55 AM EST ED HIV 1/2 ANTIBODY/ANTIGEN SCREEN WITH REFLEX TO HIV I/II DIFFERENTIATION STAT 02/08/2023 2:55 AM EST CYTO DATA CONVERSION Routine 01/19/2011 12:00 AM EST from Last 3 Months or Most Recently Relevant to Health Maintenance Results * ED HIV 1/2 Antibody/Antigen Screen w/Reflex to HIV 1/2 Differentiation (02/08/2023 2:55 AM EST) HIV 1 & 2 Antibody/Antigen Screen Non Reactive Non Reactive 02/08/2023 3:43 AM EST [facility] Comment:Screening for HIV 1 & 2 antibodies, and P24 antigen is NONREACTIVE. No confirmatory testing is required. Blood Venous blood specimen / Unknown Venipuncture / Unknown 02/08/2023 2:55 AM EST 02/08/2023 3:02 AM EST Patricia Rice MD LAB BLOOD ORDERABLES Final R esult Performing Organization Address City/[facility] Co de Phone Number [facility] [address] [place] [address] * Hepatitis C Antibody - ED (02/08/2023 2:55 AM EST) Hepatitis C Antibody Negative Negative 02/08/2023 3:43 AM EST [facility] Blood Venous blood specimen / Unknown Venipuncture / Unknown 02/08/2023 2:55 AM EST 02/08/2023 3:02 AM EST us Patricia Rice MD LAB BLOOD ORDERABLES Final R esult Performing Organization Address City/[facility] Co de Phone Number [facility] [address] [place] [address] * (ABNORMAL) Cytology (01/19/2011 12:00 AM EST) 01/19/2011 01/20/2011 10: 31 AM EST Narrative SUNQUEST - 01/27/2011 7:39 AM EST [facility] MR #: [id number] [facility] [place] [address] 1985 (Age: 25) FW Collect Date: 01/19/2011 00:00 Receipt Date: 01/20/2011 10:31 Page 1 DEPARTMENT OF PATHOLOGY AND LABORATORY MEDICINE CYTOPATHOLOGY REPORT Email: [email or web address] [phone] ATTENDING MD/Practitioner: Darline Rader MD Service: OBBERTRAM Location: [facility] Reported: 01/27/2011 07:39 Collected: 01/19/2011 00:00 INTERPRETATION A. THIN PREP (CERVICAL/VAGINAL): FEW CELLS CONSISTENT WITH LOW GRADE NATA. SHIFT IN PANTERA SUGGESTIVE OF BACTERIAL VAGINOSIS. SATISFACTORY FOR EVALUATION; ENDOCERVICAL/ TRANSFORMATION ZONE COMPONENT PRESENT. Slide scanned and imaged by [employer] ThinPrep Imaging System with manual review of all selected mckeon. Consider diagnostic follow-up studies (see www.asccp.org). Follow-up biopsies in women with LSIL on cytology may detect high grade lesions in up to 15-20% of patients. Electronically Signed Out NATALIIA Shields (ASCP) Jayden Fatima MD Cervical cytology is a screening test primarily for squamous cancers and precursors and has associated false negative and positive results. New technologies such as liquid based sampling may decrease but will not eliminate all false negative results. Regular screening and follow-up of unexplained clinical signs and symptoms are recommended to minimize false negative results. Please see the ASCCP website (www.asccp.org) for followup recommendations. If HPV testing was requested, correlation with the results is suggested (please call Microbiology at [phone] for results). CLINICAL INFORMATION: Menstrual History: : First Trimester Date of Last Menstrual Period: {Not Provided} Other Clinical Conditions: If ASCUS and > 24 years of age, HPV/DNA testing requested. SPECIMEN DESCRIPTION: A: THIN PREP (CERVICAL/VAGINAL) THIN PREP PROCESS CELLULAR ENHANCEMENT ICD: V76.2 CERVIX, SPECIAL SCREENING FOR MALIGNANT NEOPLASM 795.03 (LGSIL) PAPANICOLAOU SMEAR OF CERVIX W/LOW GRADE SQUAMOUS INTRAEPITHELIAL LESION 041.89 OTHER SPECIFIED BACTERIAL INFECTIONS F: A; RT IMAGE 68192, 20744 C\V (PO) SNOMED CODES: A; Y6T777 [id number] M-[id number] E1002 [id number] In cases where a pathologist has signed out the report, the service has been rendered in part by a resident. The signing pathologist has performed and is responsible for the reported pathologic evaluation. Caleb Rader MD LAB PATHOLOGY ORDERABLES Final Result SUNboo-box from Last 3 Months or Most Recently Relevant to Health Maintenance Insurance MEDICAID Care Teams Crib Clerk Relationship Specialty Start Date End Date Hyacinth Mendiola MD [address] [facility] [address] [place] [address] PCP - General 06/18/20
--- OUTSIDE RECORDS SUMMARY | 2024-11-18 00:13 | XMS_ITS | Referral Summary ---
Author Organization [employer] ([place], [place], [place], [place]) Address [address] [place] [address] Care Team Providers Care Rn Urgent Care Name Role Phone Unavailable Primary Care Provider Unavailabl e Social History Tobacco Use Types Packs/Day Years Used Date Smoking Tobacco: Never Assessed Comments Unknown Sex and Gender Information Value Date Recorded Sex Assigned at Not on file Legal Sex Female 1:39 PM CDT Gender Identity Not on file Sexual Orientation Not on file Plan of Treatment Not on file
--- OUTSIDE RECORDS SUMMARY | 2024-11-18 00:13 | XMS_ITS | Patient Health Record ---
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 Role Phone Migration, Provider Unavailable Unavailable Allergies Allergen (clinical drug ingredient) Drug/Non Drug Allergy documented on EMR Reaction Allergy Type Onset Date Status povidone-iodine Betadine rash Drug Allergy A ctive oxycodone oxyCODONE rash Drug Allergy Active tramadol traMADol Unknown Drug Allergy Active Results Component Value Reference Range Flag Notes CBC AUTO W DIFF Reviewed date:02/06/2024 04:02:13 PM Interpretation: Performing Lab: Notes/Report: Unless otherwise noted testing performed at: [address] [address] (office) (main lab) (secure) WBC 8.5 4.5-11.5 K/uL RBC 4.09 3.70-5.48 M/uL HGB 11.3 12.0-15.7 g/dL L HCT 35.2 35-47 % MCV 86 80-95 fL MCH 28 27-34 pg MCHC 32 32-36 g/dL RDW 15.0 11.5-14.5 % H PLATELET COUNT 313 150-450 K/uL MANUAL DIFFERENTIAL NO NEUTROPHIL % 47 40-75 % LYMPHOCYTE % 45 17-47 % MONOCYTE % 6 4-12 % EOSINOPHIL % 1 0-4 % BASOPHIL % 1 0-1 % NEUTROPHIL # 3.97 1.80-8.62 K/uL LYMPHOCYTE # 3.81 0.76-5.40 K/uL MONOCYTE # 0.52 0.18-1.38 K/uL EOSINOPHIL # 0.10 0.00-0.46 K/uL BASOPHIL # 0.05 0.00-0.11 K/uL COMP METABOLIC PANEL Reviewed date:02/06/2024 04:02:13 PM Interpretation: Performing Lab: Notes/Report: Unless otherwise noted testing performed at: [address] [address] (office) (main lab) (secure) SODIUM 139 136-145 mmol/L POTASSIUM 3.4 3.5-5.1 mmol/L L CHLORIDE 101 98-107 mmol/L CO2 29 23-31 mmol/L GLUCOSE 120 70-110 mg/dL H BUN 8 7-18 mg/dL CREATININE 1.0 0.6-1.3 mg/dL ESTIMATED GFR 74 >89- mL/min L NKF STAGE 2: 60-89 Mild decrease in GFR. TOTAL PROTEIN 7.4 6.3-8.2 g/dL ALBUMIN 4.1 3.8-5.4 g/dL CALCIUM 9.1 8.5-10.7 mg/dL TOTAL BILIRUBIN 0.3 0.2-1.3 mg/dL For patients on ELTROMBOPAG therapy, use of the Dimenension TBI assay is not recommended. AST (SGOT) 18 5-36 U/L ALT (SGPT) 15 12-78 U/L ALK PHOSPHATASE TOTAL 80 46-116 U/L ANION GAP 12.5 5-15 mmol/L UA COMPLETE WITH MICROSCOPIC Reviewed date:02/06/2024 04:02:13 PM Interpretation: Performing Lab: Notes/Report: Unless otherwise noted testing performed at: [address] [address] (office) (main lab) (secure) COLOR YELLOW STRAW - KATHERIN APPEARANCE CLEAR CLEAR SPECIFIC GRAVITY 1.010 1.003-1.035 PH 6 4.5-8.0 LEUKOCYTE ESTERASE NEGATIVE NEGATIVE NITRITE NEGATIVE NEGATIVE PROTEIN NEGATIVE NEGATIVE GLUCOSE NORMAL NORMAL mg/dL KETONE NEGATIVE NEGATIVE UROBILINOGEN NORMAL NORMAL(0.2-1.0 ) mg/dL BILIRUBIN NEGATIVE NEGATIVE BLOOD NEGATIVE NEGATIVE CULTURE? NO URINE MICROSCOPIC NO URINE DRUG SCREEN Reviewed date:02/06/2024 04:02:13 PM Interpretation: Performing Lab: Notes/Report: . A NEGATIVE result does not eliminate the possibility of the Unless otherwise noted testing performed at: The Urine Drug Screen panel has changed methodology from immunoassay presence of the drug or drug metabolite. The drug may be [facility] to immunochromatographic as of January 07, 2013. The test panel present and below detectable concentrations. [address] [place] [address] has been upgraded from a 10 panel to a 13 panel that includes the . [place], [place] [address] additional tests for Oxycodone, Buprenorphine, and Phencyclidine. A POSITIVE result indicates the presence of the drug or drug (office) If questions or further information needed, please notify the metabolites but does not indicate the level of intoxication, (main lab) laboratory at . route of administration or urinary concentration. (secure) . Confirmatory GC/MS is recommended for clarification of any screening test results. . All positive results will be sent for confirmatory testing by GC/MS, HPLC or TLC only at the request of the physican. A TCA confirmation requires a serum specimen. THC (CANNABINOIDS) NEGATIVE NEG </= 50 ng/mL COCAINE NEGATIVE NEG </= 150 ng/mL METHAMPHETAMINE NEGATIVE NEG</= 500 ng/mL OPIATE NEGATIVE NEG </= 100 ng/mL AMPHETAMINE NEGATIVE NEG </= 500 ng/mL METHADONE NEGATIVE NEG </= 200 ng/mL BENZODIAZEPINES NEGATIVE NEG </= 150 ng/mL TCA (TRICYCLIC ANTIDEPRESSANT) NEGATIVE NEG </= 300 ng/mL BARBITURATES NEGATIVE NEG </= 200 ng/mL URINE DRUG SCREEN KIT LOT# [id number] URINE DRUG SCREEN KIT EXP DATE [id number] PHENCYCLIDINE NEGATIVE NEG </= 25 ng/mL OXYCODONE NEGATIVE NEG </= 100 ng/mL BUPRENORPHINE (SUBOXZONE) NEGATIVE NEG </ = 10 ng/mL UDS INTERNAL QC 1 VALID VALID UDS INTERNAL QC 2 VALID VALID UDS INTERNAL QC 3 VALID VALID UDS INTERNAL QC 4 VALID VALID UDS INTERNAL QC 5 VALID VALID TROPONIN, HIGH-SENSITIVITY Reviewed date:02/06/2024 04:02:13 PM Interpretation: Performing Lab: Notes/Report: TROPONIN, HIGH-SENSITIVITY <4 4-51 ng/L L Biotin concentrations greater than 300 ng/mL may lead to falsely depressed troponin results. A test result that is inconsistent with the clinical picture and patient history should be interpreted with caution. 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 Comparison: CR/DOC - CHEST PA LATERAL - 12/13/20 13:51 EST Findings: The lungs appear clear. There is no consolidation, effusion, or pneumothorax. Cardiomediastinal silhouette is within normal limits. IMPRESSION: IMPRESSION: No acute cardiopulmonary abnormality. Authenticated and [facility] Dictated By: Brisa Ledesma Colin Transcribed By: Transcribed On: 02/05/2024 9:22 PM Electronically signed by: Brisa Ledesma Colin 02/05/2024 Thank you for referring KATHERIN WILSON to [facility]. Legally authenticated by LYUBOV Campos 2024-02-05 21:22:42 [id number] [facility] X8CXR1 [address] 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 X8CXR1 Comparison: CR/DOC - CHEST PA LATERAL - 12/13/20 13:51 EST X8CXR1 Findings: X8CXR1 The lungs appear clear. There is no consolidation, effusion, X8CXR1 or pneumothorax. Cardiomediastinal silhouette is within normal X8CXR1 limits. X8CXR1 IMPRESSION: X8CXR1 IMPRESSION: X8CXR1 No acute cardiopulmonary abnormality. X8CXR1 Authenticated and Electronically Signed by Justino Ledesma MD on X8CXR1 02/05/2024 09:22:42 PME[facility]ERN X8CXR1 Dictated By: Liyah hernandez M.D., Colin [id number] Transcribed By: [id number] Transcribed On: 02/05/2024 9:22 PM X8CXR1 Electronically monie d by: Brisa Ledesma Colin 02/05/2024 [id number] Thank you for referring KATHERIN WILSON to [facility]. [id number] Legally authenticate d by LYUBOV Campos 2024-02-05 21:22:42 Reason For Referral No Information Medications Medication SIG (Take, Route, Frequency, Duration) Notes Start Date End Date Status rOPINIRole HCl 1 MG Tablet 1 tab(s) oral ly 3 times a day; Duration: 30 day(s) 07/07/2020 Active Pepcid 20 MG Tablet 1 tab(s) orally 2 ti mes a day; Duration: 30 days Active Atenolol 25 MG Tablet 1 tab(s) orally on ce a day; Duration: 30 day(s) Active KlonoPIN 0.5 MG Tablet 1 tab(s) orally d aily prn; Duration: 28 days 04/11/2021 Active Promethazine-DM 6.25-15 MG/5ML Syrup 5 mL orally every 6 hours prn 05/03/2021 Active Vitamin D3 1.25 MG (92351 UT) Capsule as directed orally once a week; Duration: 30 day(s) Active Social History Social History Social History Social Info Question Answer Notes Tobacco Use Current smoking status: Current Smoker Additional Details Category Social Info Options Details Social History Occupational exposure none Travel outside [place] no Alcohol no Sexually active yes Drug use no Exercise yes Home smoke detector use: yes Caffeine yes Marital Status Children 9 Pets 2 cats, 2 dogs Problems Problem Type SNOMED Code ICD Code Onset Dates Problem Status W/U Status Risk Notes Problem Essential hypertension (11976981) Essential (primary) hypertension (I10) Active confirmed Problem Tobacco user (448758054) Nicotine dependence, unspecified, uncomplicated (F17.200) Active confirmed Problem Generalized anxiety disorder (30932164) Generalized anxiety disorder (F41.1) Active confirmed Problem Essential tremor (052864344) Essential tremor (G25.0) Active confirmed Problem Restless legs syndrome (87608871) Restless legs syndrome (G25.81) Active confirmed Problem Polyneuropathy (20094539) Polyneuropathy, unspecified (G62.9) Active confirmed Problem Generalized anxiety disorder (01083572) Generalized anxiety disorder (F41.1) Active confirmed Problem Panic disorder (436514141) Panic disorder [episodic paroxysmal anxiety] (F41.0) Active confirmed Encounters Encounter Location Date Provider Diagnosis [address] [address] 07/12/2024 Provider Migration Plan Of Treatment No Information Insurance Providers Payer Name Payer Address Payer Phone Subscriber Number Group Number Insured Name Patient Relationship to Insured Coverage Start Date Coverage End Date [facility] Medicaid [address] [address] [place] [address] [id number] Katherin Wilson Self - patient is the insured Medical (General) History Medical History History ICD Code asthma mental illness Surgical History Surgery Date(Month/Year) abscess surgery/MRSA 04/2009 ectopic 06/2015 03/22/2020 Hospitalization History Reason Date(Month/Year) MRSA 04/2009 placenta previa 03/10/2020
--- OUTSIDE RECORDS SUMMARY | 2024-11-18 00:13 | XMS_ITS | Clinical Summary ---
Author Organization [facility] Address [address] [place] [address] Care Team Providers Care Featheredger And Reducer Machine Name Role Phone Tanmay Arellano MD Primary Care Provider [phone] Allergies Active Allergy Reactions Criticality Noted Date Comments Povidone Iodine Other (See Comments) High 10/18/2018 PT REPORTS TOLD ALLERGIC WHEN SHE CAME OUT OF SURGERY Iron Other (See Comments) 10/18/2018 IV only. Heart started hurting, one sided body numbness Tramadol Hives 10/18/2018 Medications atenolol (TENORMIN) 25 MG tablet 1 Active famotidine (PEPCID) 20 MG tablet 1 Active Vit-Fe Fumarate-FA ( vitamin 27-0.8) 27-0.8 MG tablet tablet Take 1 tablet by mouth Daily. Active promethazine-dextro methorphan (PROMETHAZINE-DM) 6.25-15 MG/5ML syrupIndications:Co ugh with exposure to COVID-19 virus Take 5 mL by mouth 4 (Four) Times a Day As Needed for Cough. 180 mL 2 Active clonazePAM (KlonoPIN) 0.5 MG tablet Take 0.5 mg by mouth 2 (Two) Times a Day As Needed. Active ondansetron ODT (ZOFRAN-ODT) [address] 1 tablet on the tongue Every 4 (Four) Hours. 12 tablet 2 Active HYDROcodone-acetami nophen (NORCO) 5-325 MG per tabletIndications:B iliary colic,Right upper quadrant abdominal pain Take 1 tablet by mouth Every 4 (Four) Hours As Needed for Moderate Pain . 12 tablet 2 Active dicyclomine (BENTYL) 20 MG tablet Take 1 tablet by mouth Every 6 (Six) Hours. 12 tablet 2 Active ondansetron ODT (ZOFRAN-ODT) [address] 1 tablet on the tongue Every 6 (Six) Hours As Needed. 12 tablet 05/18/2021 10:05 AM EDT 2 Active oxyCODONE-acetamino phen (Percocet) 5-325 MG per tablet Take 1 tablet by mouth Every 6 (Six) Hours As Needed. 12 tablet 05/18/2021 10:05 AM EDT 2 Active Active Problems Problem Noted Date Diagnosed Date Opioid dependence 10/16/2019 Overview (12/22/2019): Patient enrolled at [facility]. Started on Subutex 4 mg daily Repeat UDS 12/17 pos for opiates and benzo; neg for buprenorphine Positive RPR test 10/16/2019 Overview (10/16/2019): Patient states she was treated for syphilis for [facility] in 2019 with 3 penicillin IM injections. Patient to make follow-up appointment with health department History of prior w ith small for gestational age 10/16/2019 Overview (10/16/2019): History of prior 4 pound and 6 pound infant Underweight 10/16/2019 Iron deficiency anemia 10/16/2019 Overview (10/16/2019): hematocrit 37%; normal iron studies Blood type, Rh negative 10/16/2019 Overview (10/16/2019): O negative Assessment & Plan (12/18/2019 11:22 AM EST): RhoGam given 12/18/2019 due to bleeding from placenta previa. MTHFR deficiency complicating 10/16/19 20 Overview (10/16/2019): [id number]; on folate 4 mg daily Resolved Problems Problem Noted Date Diagnosed Date Resolved Date Placenta previa in third trimester 03/11/2020 03/26/2020 Nausea and vomiting in 03/10/2020 03/26/2020 Vaginal bleeding in 12/08/2019 03/26/2020 Placenta previa in second trimester 12/08/2019 03/26/2020 Overview (12/18/2019): Possible bilobed placenta with anterior and posterior placenta previa at 21 weeks. Assessment & Plan (12/18/2019 11:24 AM EST): Repeat ultrasound at 30-32 weeks. Mild hyperemesis gravidarum 11/13/2019 03/26/2020 Overview (11/13/2019): Rx Zofran required. Promethazine not effective. 11/13/2019 03/26/2020 Overview (12/18/2019): Maternal blood type O- ;Rh- RPR positive. History of prior treatment of syphilis. MTHFR deficiency History of small for gestational age infants Declines cell free DNA. Possible bilobed placenta with placenta previa. Immunizations Immunization Administration Dates Next Due Rho (D) Immune Globulin 03/23/2020,03/02/2020, Tdap 11/19/2018 Family History Medical History Relation Name Comments Heart disease Father Heart disease Mother Heart disease Other FAMILY HX Heart disease Sister Relation Name Status Comments Father Mother Other FAMILY HX Sister Social History Tobacco Use Types Packs/Day Years Used Date Smoking Tobacco: Every Day Cigarettes 1 15 Smokeless Tobacco: Never Alcohol Use Standard Drinks/Week Comments No 0 (1 standard drink = 0.6 oz pur e alcohol) AUDIT-C Answer Date Recorded Q1: How often do you have a drink containing alc ohol? Never 04/06/2020 Average Number of Drinks Not on file 021 Frequency of Binge Drinking Not on file 03/2020 [place] Depression Scale Answer Date Recorded P[place] Depression Scale Total 8 03/23/2020 The thought of harming myself has occurred to me . Never 03/23/2020 Abuse Screen Answer Date Recorded Feels Unsafe at Home or Work/School no 02/09/2023 Feels Threatened by Someone no 06/2023 Does Anyone Try to Keep You From Having Contact with Others or Doing Things Outside Your Home? no 02/09/2023 Physical Signs of Abuse Present no 02/09/2023 Housing Stability Answer Date Recorded Current Living Arrangements Not on file 10/2022 Potentially Unsafe Housing Conditions Not on jennyfer e 11/13/2022 Family and Community Support Answer Danny e Recorded Help with Day-to-Day Activities Not on file 11/13/2022 Lonely or Isolated Not on file 11/13/2022 Employment Answer Date Recorded Do you want help finding or keeping work or a santa b? Not on file 11/13/2022 Disabilities Answer Date Recorded Concentrating, Remembering, or Making Decisions Difficulty Not on file 11/13/2022 Doing Errands Independently Difficulty Not on fi le 11/13/2022 Education Answer Date Recorded Help with school or training? 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 Not on file Not on file Last Filed Vital Signs Vital Sign Reading Time Taken Comments Blood Pressure 112/74 02/09/2023 3:40 AM EST Pulse 90 02/09/2023 3:40 AM EST Temperature 36.7 C (98.1 F) 02/09/2023 12:53 AM EST Respiratory Rate 16 02/09/2023 12:53 AM EST Oxygen Saturation 100% 02/09/2023 3:40 AM EST Inhaled Oxygen Concentration - - Weight 46.3 kg (102 lb) 02/09/2023 12:53 AM EST Height 147.3 cm (4' 10 ) 02/09/2023 12:53 AM EST Body Mass Index 21.32 02/09/2023 12:53 AM EST Plan of Treatment Health Maintenance Due Date Last Done Comments Annual Gynecologic Pelvic an d Breast Exam 1985 ANNUAL PHYSICAL 10/12/2019 INFLUENZA VACCINE 09/05/2024 02/11/2014 TDAP/TD VACCINES (3 - Td or Tdap) 11/19/2028 11/19/2018, 02/11/2014 HEPATITIS C SCREENING Completed 02/08/2023 Pneumococcal Vaccine 0-49 Aged Out No longer eligible based on patient's age to complete this topic Insurance [employer] MEDICAID [place] Advance Directives * CPR (Attempt to Resuscitate) (Latest Code Status on File) Date Activated Date Inactivated Comments 03/23/2020 12:29 PM 03/26/2020 4:50 PM Question Answer Comments Code Status (Patient has no pulse and is not breathing): CPR (Attempt to Resuscitate) Medical Interventions (Patie nt has pulse or is breathing): Full * CPR (Attempt to Resuscitate) Date Activated Date Inactivated Comments 03/23/2020 12:29 PM 03/23/2020 12:29 PM Question Answer Comments Code Status (Patient has no pulse and is not breathing): CPR (Attempt to Resuscitate) Medical Interventions (Patie nt has pulse or is breathing): Full * CPR (Attempt to Resuscitate) Date Activated Date Inactivated Comments 03/10/2020 2:33 PM 03/23/2020 12:29 PM Question Answer Comments Code Status (Patient has no pulse and is not breathing): CPR (Attempt to Resuscitate) Medical Interventions (Patie nt has pulse or is breathing): Full Care Teams Featheredger And Reducer Machine Relationship Specialty Start Date End Date Tanmay Arellano MD [address] [place] [address] PCP - General Family Medicine 12/04/20
--- OUTSIDE RECORDS SUMMARY | 2024-11-18 00:13 | XMS_ITS | Encounter Summary ---
Author Organization [employer] ([place], [place], [place], [place]) Address [address] [place] [address] Care Team Providers Care Development Mgr Name Role Phone Unavailable Primary Care Provider Unavailabl e Encounter Details Date Type Department Care Team (Late st Contact Info) Description 08/16/2020 Transcribed Document [facility] Family Medicine [address] [place] [id number] ProviderNani MD [address] [place] [id number] Social History Tobacco Use Types Packs/Day Years Used Date Smoking Tobacco: Never Assessed Comments Unknown Sex and Gender Information Value Date Recorded Sex Assigned at Not on file Legal Sex Female 1:39 PM CDT Gender Identity Not on file Sexual Orientation Not on file documented as of this encounter Miscellaneous Notes * Cerner Conversion Note - Historical ProviderMD - 08/16/2020 5:18 PM CDT Patient: KATHERIN WILSON Age: 35 years Sex: Female : 1985 Associated Diagnoses: Viral syndrome Author: TAWANDA POLLARD APRN Basic Information Time seen: Immediately upon arrival. History source: Patient. Arrival mode: Private vehicle. History limitation: None. Additional information: Chief Complaint from Nursing Triage Note : Chief Complaint 08/16/2020 17:08 EDT Chief Complaint pt c/o soa, cough, sore throat and body aches x2 days. pt denies being around anyone with covid . History of Present Illness Patient presents to the ER with complaints of shortness of breath, cough, sore throat and body aches for the past 2 days. Patient states that she has had a low-grade fever. She has taken some tvil-wsy-lracnyi cough and cold medicine. Patient also complains of sore throat as well. Patient is alert and in no acute distress. Review of Systems Constitutional symptoms: Fever, chills. Skin symptoms: Negative except as documented in HPI. Eye symptoms: Negative except as documented in HPI. ENMT symptoms: Sore throat, nasal congestion. Respiratory symptoms: Cough. Cardiovascular symptoms: Negative except as documented in HPI. Gastrointestinal symptoms: Negative except as documented in HPI. Musculoskeletal symptoms: Negative except as documented in HPI. Neurologic symptoms: Negative except as documented in HPI. Psychiatric symptoms: Anxiety, depression. Allergy/immunologic symptoms: Seasonal allergies. Health Status Allergies: Allergic Reactions (Selected) Severity Not Documented Iron polysaccharide- No reactions were documented. OxyCODONE- No reactions were documented. Povidone iodine topical- No reactions were documented. TraMADol- No reactions were documented.. Medications: (Selected) Documented Medications Documented Suboxone 8 mg-2 mg sublingual film: 2 Each, SubLINgual, Daily, 0 Refill(s). Past Medical/ Family/ Social History Surgical history: R hip abscess. Laparoscopy ([id number])., Reviewed as documented in chart. Family history: [...] Physical Examination Vital Signs Vital Signs/Vital Measures 08/16/2020 17:08 EDT Systolic Blood Pressure 125 mmHg Diastolic Blood Pressure 83 mmHg Temperature Source Tympanic Temperature Mode Fahrenheit Temperature, Fahrenheit 99.4 Deg F Clinical Temperature, C 37.4 Deg C Peripheral Pulse Rate 114 bpm HI Respiratory Rate 18 Breaths/Min Oxygen Saturation 97 % Oxygen Therapy Mode Room air . Measurements 08/16/2020 17:08 EDT Height Source Stated Height Entry Format Cache Height/Length, KENYAN (ft) 5 ft Height/Length KENYAN 3 Inch CLINICALHEIGHT 160.02 cm [place] Body Weight 52.02 kg Weight Source, ED Critical estimated dosing weight Weight Entry Format Cache Weight Czech lb 110 lb CLINICALWEIGHT 50 kg Body Surface Area (BSA) 1.5 m2 Body Mass Index 19.5 kg/m2 . Oxygen Saturation 08/16/2020 17:08 EDT Oxygen Saturation 97 % . General: Alert, no acute distress. Skin: Warm, pink, intact. Ears, nose, mouth and throat: Throat: Bilateral, moderate, pharynx, tonsil, erythema, gag reflex present, no uvula shift. Neck: Supple, trachea midline. Cardiovascular: Regular rate and rhythm, No murmur. Respiratory: Lungs are clear to auscultation, respirations are non-labored, breath sounds are equal, Symmetrical chest wall expansion. Musculoskeletal: Normal ROM. Neurological: Alert and oriented to person, place, time, and situation. Lymphatics: No lymphadenopathy. Medical Decision Making Differential Diagnosis:: Bronchitis, upper respiratory infection, pneumonia, influenza, sinusitis, pharyngitis. Orders Include Previous Orders (Selected) Inpatient Orders Ordered ED Clinical Reconciliation: ED Isolation: ED starch mangle tender: Isolation: Ordered (Dispatched) COVID-19: Strep A PCR: Ordered (Exam Ordered) CR Chest PA & Lat: Completed Broset Violence Assessment: ED Adult Fall Risk Assessment: ED Adult Triage: ED C-SSRS: . Results review: Lab results : Lab Results 08/16/2020 17:16 EDT Group A Strep PCR Not Detected SARS-CoV-2 (COVID19 PCR) Negative . Radiology results: Radiology Results (Last 48 hours) [id number] -- 08/16/2020 16:55 CR Chest 2 Vws (08/16/2020 17:26) Result: EXAMINATION TECHNIQUE:Two-view chestCLINICAL HISTORY:Chest pain.COMPARISON:10/18/2018FINDINGS:Clear lungs. No pneumothorax or pleural effusion. Normal heart size.IMPRESSION:No acute cardiopulmonary findings.Images personally reviewed, interpreted and dictated by Judd Trevizo . Impression and Plan Diagnosis Viral syndrome - Discharge, Emergency medicine, Medical Plan Condition: Stable. Disposition: Discharged Admit/Transfer/Discharge: Discharge (Order): Start: 08/16/2020 19:59 EDT, Discharge to: Home . Prescriptions: Prescription [facility]: [facility] 100 mg oral capsule (Prescribe): 1 Cap, Oral, TID, for 7 Day(s), PRN: as needed for cough, 21 Cap, 0 Refill(s) . Patient was given the following educational materials: Viral Illness, Adult. Follow up with: NOT LISTED PHY Within 2 to 3 days; Follow up with primary care provider Within As needed; Return to Emergency Department Within As needed. Counseled: Patient, Regarding diagnosis, Regarding diagnostic results, Regarding treatment plan, Regarding prescription, Patient indicated understanding of instructions. documented in this encounter Plan of Treatment Not on file documented as of this encounter Visit Diagnoses Not on filedocumented in this encounter
--- OUTSIDE RECORDS SUMMARY | 2024-11-18 00:13 | XMS_ITS | Clinical Summary ---
Author Organization [employer] ([place], [place], [place], [place]) Address [address] [place] [address] Care Team Providers Care Threading Machine Setter Name Role Phone Unavailable Primary Care Provider [...]
--- OUTSIDE RECORDS SUMMARY | 2024-11-18 00:13 | XMS_ITS | Encounter Summary ---
Author Organization [employer] ([place], [place], [place], [place]) Address [address] [place] [address] Care Team Providers Care Agriscience Teacher Name Role Phone Unavailable Primary Care Provider Unavailabl e Encounter Details Date Type Department Care Team (Late st Contact Info) Description 08/16/2020 Transcribed Document [facility] [place] [facility] [place] [address] ProviderNani MD [address] [place] [address] Social History Tobacco Use Types Packs/Day Years Used Date Smoking Tobacco: Never Assessed Comments Unknown Sex and Gender Information Value Date Recorded Sex Assigned at Not on file Legal Sex Female 1:39 PM CDT Gender Identity Not on file Sexual Orientation Not on file documented as of this encounter Miscellaneous Notes * Cerner Conversion Note - Nani Campos MD - 08/16/2020 8:03 PM CDT [facility] [place], [place] [id number] KATHERIN WILSON :1985 Visit Time:08/16/2020 Your Visit Summary Your Care Team Primary Provider: TAWANDA POLLARD Secondary Provider: Your Diagnosis Cough Shortness of breath Viral syndrome Medical Information You may obtain a copy [...] do next Follow-Up Appointments Follow Up with Return to Emergency Department When Within As needed Follow Up with Follow up with primary care provider When Within As needed Follow Up with NOT LISTED PHY When Within 2 to 3 days Allergies iron polysaccharide oxyCODONE povidone iodine topical traMADol Immunizations This Visit No Immunizations Found Medications What How Much When Instructions Next Dose buprenorphine-naloxone (Suboxone 8 mg-2 mg sublingual film) 2 Each SubLINgual Every Day The home medications listed are only as [...] This Visit (last charted value for your 08/16/2020 visit) Microbiology 08/16/2020 5:16 PM SARS-CoV-2 (COVID19 PCR): Negative Molecular Testing 08/16/2020 5:16 PM Group A Strep PCR: Not Detected Diagnostic Radiology 08/16/2020 5:26 PM CR Chest 2 Vws: CR Chest 2 Vws Education Materials Viral Illness, Adult Viruses are tiny germs that can get into a person's body and cause illness. There are many different types of viruses, and they cause many types of illness. Viral illnesses can range from mild to severe. They can affect various parts of the body. Common illnesses that are caused by a virus include colds and the flu. Viral illnesses also include serious conditions such as HIV/AIDS (human immunodeficiency virus/acquired immunodeficiency syndrome). A few viruses have been linked to certain cancers. What are the causes? Many types of viruses can cause illness. Viruses invade cells in your body, multiply, and cause the infected cells to malfunction or . When the cell dies, it releases more of the virus. When this happens, you develop symptoms of the illness, and the virus continues to spread to other cells. If the virus takes over the function of the cell, it can cause the cell to divide and grow out of control, as is the case when a virus causes cancer. Different viruses get into the body in different ways. You can get a virus by: ??? Swallowing food or water that is contaminated with the virus. ??? Breathing in droplets that have been coughed or sneezed into the air by an infected person. ??? Touching a surface that has been contaminated with the virus and then touching your eyes, nose, or mouth. ??? Being bitten by an insect or animal that carries the virus. ??? Having sexual contact with a person who is infected with the virus. ??? Being exposed to blood or fluids that contain the virus, either through an open cut or during a transfusion. If a virus enters your body, your body's defense system (immune system) will try to fight the virus. You may be at higher risk for a viral illness if your immune system is weak. What are the signs or symptoms? Symptoms vary depending on the type of virus and the location of the cells that it invades. Common symptoms of the main types of viral illnesses include: Cold and flu viruses ??? Fever. ??? Headache. ??? Sore throat. ??? Muscle aches. ??? Nasal congestion. ??? Cough. Digestive system (gastrointestinal) viruses ??? Fever. ??? Abdominal pain. ??? Nausea. ??? Diarrhea. Liver viruses (hepatitis) ??? Loss of appetite. ??? Tiredness. ??? Yellowing of the skin (jaundice). Brain and spinal cord viruses ??? Fever. ??? Headache. ??? Stiff neck. ??? Nausea and vomiting. ??? Confusion or sleepiness. Skin viruses ??? Warts. ??? Itching. ??? Rash. Sexually transmitted viruses ??? Discharge. ??? Swelling. ??? Redness. ??? Rash. How is this treated? Viruses can be difficult to treat because they live within cells. Antibiotic medicines do not treat viruses because these drugs do not get inside cells. Treatment for a viral illness may include: ??? Resting and drinking plenty of fluids. ??? Medicines to relieve symptoms. These can include kwzb-lyz-bceqndw medicine for pain and fever, medicines for cough or congestion, and medicines to relieve diarrhea. ??? Antiviral medicines. These drugs are available only for certain types of viruses. They may help reduce flu symptoms if taken early. There are also many antiviral medicines for hepatitis and HIV/AIDS. Some viral illnesses can be prevented with vaccinations. A common example is the flu shot. Follow these instructions at home: Medicines ??? Take rwat-lzc-npfdiel and prescription medicines only as told by your health care provider. ??? If you were prescribed an antiviral medicine, take it as told by your health care provider. Do not stop taking the medicine even if you start to feel better. ??? Be aware of when antibiotics are needed and when they are not needed. Antibiotics do not treat viruses. If your health care provider thinks that you may have a bacterial infection as well as a viral infection, you may get an antibiotic. ? Do not ask for an antibiotic prescription if you have been diagnosed with a viral illness. That will not make your illness go away faster. ? Frequently taking antibiotics when they are not needed can lead to antibiotic resistance. When this develops, the medicine no longer works against the bacteria that it normally fights. General instructions ??? Drink enough fluids to keep your urine clear or pale yellow. ??? Rest as much as possible. ??? Return to your normal activities as told by your health care provider. Ask your health care provider what activities are safe for you. ??? Keep all follow-up visits as told by your health care provider. This is important. How is this prevented? Take these actions to reduce your risk of viral infection: ??? Eat a healthy diet and get enough rest. ??? Wash your hands often with soap and water. This is especially important when you are in public places. If soap and water are not available, use hand linux system engineer. ??? Avoid close contact with friends and family who have a viral illness. ??? If you travel to areas where viral gastrointestinal infection is common, avoid drinking water or eating raw food. ??? Keep your immunizations up to date. Get a flu shot every year as told by your health care provider. ??? Do not share toothbrushes, nail clippers, razors, or needles with other people. ??? Always practice safe sex. Contact a health care provider if: ??? You have symptoms of a viral illness that do not go away. ??? Your symptoms come back after going away. ??? Your symptoms get worse. Get help right away if: ??? You have trouble breathing. ??? You have a severe headache or a stiff neck. ??? You have severe vomiting or abdominal pain. This information is not intended to replace advice given to you by your health care provider. Make sure you discuss any questions you have with your health care provider. Document Revised: 01/04/2018 Document Reviewed: 06/02/2016 [employer] Patient Education ?? 2020 [employer] Emergency Awareness and Preventative Care STROKE [...] Assistance with quitting is available by contacting 0-539-AFFZ-NOW. This is a free resource providing counseling, [...] was given the opportunity to ask questions. Patient/Insurance Associate Name: Patient/Insurance Associate Signature: Relationship to Patient: Clinician/Hospital Insurance Associate Signature: Please Provide a Telephone Number Where You Can Be Reached: Is it Permissible To Leave a Message? Date: Electronically signed by Oracio, Jeane Conversion Nuclear Weapons Mechanical Specialist Cerner at 05/25/2022 6:28 PM CDT documented in this encounter Plan of Treatment Not on file documented as of this encounter Visit Diagnoses Not on filedocumented in this encounter
--- OUTSIDE RECORDS SUMMARY | 2024-11-18 00:13 | XMS_ITS | Encounter Summary ---
Author Organization [facility] Address [address] [place] [address] Care Team Providers Care Assembler Semiconductor Name Role Phone Hyacinth Mendiola MD Primary Care Provider + Encounter Details Date Type Department Care Team (Late st Contact Info) Description 09/28/2020 Community [facility] Community [facility] [address] [place] [address] Sudeep [place]endez, [place] [address] [facility] [address] [place], [place] [id number] Occasional tremors (Primary Dx) Social History Tobacco Use Types [...] as of this encounter Visit Diagnoses Diagnosis Occasional tremors- Primary documented in this encounter Additional Health Concerns Infection Onset Date Last Indicated Resolved Time COVID-19 Rule-Out 11/29/2020 11/29/2020 11/29/2020 8:42 PM EDT documented as of this encounter Care Teams Assembler Semiconductor Relationship Specialty Start Date End Date Hyacinth Mendiola MD [address] [facility] [address] [place], [place] [id number] PCP - General 06/18/20 documented as of this encounter
[2024-11-18 00:16] VITALS: BP 148/99; PULSE 115; RESP 16; TEMP 36.4; O2SAT 99; BMI 23.6
[2024-11-18] MEDS: BUPRENORPHINE/NALOXONE 8MG/2MG ODT 2 EACH SL (00:57)
[2024-11-18] MEDS: LACTATED RINGERS 1000ML 1,000 ML 999 ML IV (00:57)
[2024-11-18 00:58] LABS: Hematocrit 37.1 % (37.0-47.0); Hemoglobin 12.5 g/dL (12.2-16.2); Immature Granulocytes % 0.2 %; Mean Corpuscular HGB Conc 33.7 g/dL (31.8-35.4); Mean Corpuscular Hemoglobin 27.8 pg (27.0-31.2); Mean Corpuscular Volume 82.4 fl (81-99); Nucleated Red Blood Cells % 0 %; Platelet Count 253 K/mm3 (142-424); Red Blood Count 4.50 M/mm3 (4.20-5.40); Red Cell Distribution Width-SD 45.8 fL; White Blood Count 8.4 K/mm3 (4.8-10.8)
[2024-11-18 01:08] LABS: Alanine Aminotransferase 18 U/L (12-78); Albumin Level 4.7 g/dl (3.5-5.0); Albumin/Globulin Ratio 1.6 (1.1-1.8); Alkaline Phosphatase 111 U/L (38-126); Anion Gap 15.5 mEq/L (5-15); Aspartate Amino Transferase 29 U/L (14-36); Bilirubin,Total 0.7 mg/dl (0.2-1.3); Blood Urea Nitrogen 6 mg/dl (7-17); Calcium 9.7 mg/dl (8.4-10.2); Carbon Dioxide 26 mmol/L (22.0-30.0); Chloride 102 mmol/L (98-107); Creatinine Clearance Estimated 103 mL/min (50-200); Creatinine,Serum 0.60 mg/dl (0.52-1.04); Estimated Glomerular Filt Rate 112 ml/min (>60); GFR (African American) 135 ML/MIN (>60); Globulin 3.0 g/dL (1.3-3.2); Glucose 94 mg/dl (74-100); Lipase 193 U/L (23-300); Potassium 3.5 mmoL/L (3.5-5.1); Sodium 140 mmol/L (136-145); Total Protein,Serum 7.7 g/dl (6.3-8.2)
[2024-11-18 01:28] LABS: HCG Qualitative, Serum Negative (Negative)
[2024-11-18] MEDS: ONDANSETRON 4MG/2ML VIAL 4 MG IV (01:35)
--- NOTE | 2024-11-18 01:57 | ED_ITS ---
Discharge Plan Disposition Patient Disposition: Home, Self-Care Condition: Good Prescriptions Prescriptions: New ondansetron 4 mg tablet,disintegrating 4 mg PO Q6H PRN (Reason: nausea and vomiting) Qty: 10 0RF No Action hydroxyzine pamoate [Vistaril] 25 mg capsule 25 mg PO Q8H PRN (Reason: anxiety) 7 Days Qty: 21 0RF Referrals Follow up/Referrals: Tanmay Arellano MD [Primary Care Provider, Medical] - See instructions Activity Restrictions/Add. Instructions Additional Instructions/Restrictions: You were evaluated in the ER and are believed to be appropriate for discharge at this time. Of course I recommend to not use illicit substances and only use medications prescribed to you. Related to this, keep your appointment with the Suboxone clinic in 24 hours and follow-up with them as scheduled. Follow-up with your primary care doctor for reevaluation as well. Return to the ER with any new, worsening, or otherwise concerning symptoms. Clinical Impressions Clinical Impression: Drug withdrawal, Nausea, vomiting, and diarrhea Instructions Patient Instructions: DI for Diarrhea and Traveler's Diarrhea in Adults, DI for Diarrhea and Traveler's Diarrhea in Children, DI for Nausea in Adults, DI for Nausea in Children Print Language Print Language: Ukrainian Discharge ED Provider: Joel Oviedo Adult HPI General Chief complaint: Nausea/Vomiting/Diarrhea Stated complaint: Possible Panic Attack; Suboxene clinic sent Time Seen by Provider: 11/18/24 00:30 Mode of Arrival: Ambulatory Source of Information: Patient Description of Symptoms (Recalled from ER Triage Doc. by RN): Pt states approx 45 min [employer] she began having panic attack. Pt states she takes Suboxone and has not had her dose since 0700 on 11/17/2024. Pt states she thinks she is starting to withdraw and having N/V/D. History of Present Illness HPI narrative: 9-year-old female with history of opioid abuse on Suboxone reportedly for the last 6 years presents to the ER with anxiety, nausea, vomiting, diarrhea. Patient reports she was prescribed Suboxone through July but lost access to her phone and any ability to get to Suboxone clinic so she started buying them on the street. She states she has been buying Suboxone but used her last one around 7 AM Sunday, approximately 40 hours ago. Patient states she has been buying Suboxone because she did not want to relapse but did not have any way to access the clinic. She states she does occasionally buy benzos for panic attacks but has not had 1 in a few days. Patient states she takes 2 of the 8?2 Suboxone tablets daily. Review of PDMP is consistent with this and patient's story that she stopped getting them prescribed in July. Patient denies any history of IV drug use and states her addiction was to pain pills. Patient states her nausea and vomiting started today but it has been nonbloody, nonbilious, she has also had diarrhea. She believes it is related to Suboxone withdrawal. She shows me an appointment on her phone scheduled for tomorrow with the Suboxone clinic to get back on her regular regimen. She denies fevers or chills, no headache or dizziness, no chest pain or difficulty breathing, no numbness, tingling, or weakness. No dysuria or hematuria. Related Data Previous Rx's ?Medication ?Instructions ?Recorded hydroxyzine pamoate 25 mg capsule 25 mg PO Q8H PRN anx iety 7 days 12/28/23 (Vistaril) #21 caps ondansetron 4 mg disintegrating 4 mg PO Q6H PRN nausea and 11/18/24 tablet vomiting #10 tabs Allergies Allergy/AdvReac Type Severity Reaction Status Date / Time povidone-iodine (From Allergy Mild Rash Verified 12/28/23 11:38 Betadine) iron Allergy Rash Verified 12/28/23 11:38 [facility] Disclaimer: The information contained in this section may have been updated after the patient was seen, as this information can be updated by other users. Social History (Updated 12/28/23 @ 12:33 by Branden Oreilly MD) Smoking Status: Current every day smoker alcohol intake: never current occupational status: other Travel in the last 8 weeks?: None Have you lived/traveled outside [place] in past 30 days?: No Contact w/someone who lives/traveled outside [place] past 30 days?: No Exposure to someone with infectious disease in past 14 days?: No Do you have a fever (greater than 100.4 F or 38 C)?: No Have you tested positive for COVID-19?: No Exposed to someone with COVID-19 in past 14 days?: No Do you have a sore throat?: No Do you have a cough?: No Do you have any weakness?: No Do you have any diarrhea?: No Are you experiencing any unusual bleeding?: No Do you have any muscle aches/pain?: No Do you have any abdominal pain?: No Are you experiencing loss of taste or smell?: No ROS Obtained: Yes Systems reviewed as appropriate & no additional complaints except as documented Per HPI Physical Exam General General appearance: alert and in no apparent distress Head Head exam: atraumatic and normocephalic Eye Eye exam: Present PERRL and EOMI ENT ENT exam: Present mucous membranes moist Neck Neck exam: Present normal inspection and full ROM Chest Chest inspection: Present symmetric chest wall rise Respiratory Respiratory exam: Present normal lung sounds bilaterally; Absent respiratory distress, wheezes or stridor Cardiovascular Cardiovascular exam: Present normal rhythm and tachycardia Abdominal Exam Abdominal exam: Present soft; Absent distention or tenderness Extremities Exam Extremities exam: Present full ROM and normal capillary refill Neurological Exam Neurological exam: Present alert and oriented X3; Absent motor sensory deficit Psychiatric Psychiatric exam: Present normal affect and normal mood Skin Skin exam: Present warm and dry Medical Decision Making Medical Records Medical records reviewed: Yes I reviewed the patient's medical records. Screening: Per USPSTF and CDC recommendations, given the prevalence of disease in our region, it is our hospital?s policy to screen for HIV and viral Hepatitis for all patients aged 18 and over and those with ongoing risk factors. Anand Inquiry Pt receiving controlled substance: No Vital Signs: 11/18/24 00:16 11/18/24 02:26 Temperature 97.6 F 97.8 F Temperature Source Oral Pulse Rate 78 Pulse Rate [Left] 115 H Respiratory Rate 16 17 Blood Pressure 124/78 Blood Pressure [Right Arm] 148/99 H Blood Pressure Mean [Right Arm] 115 Blood Pressure Source [Right Arm] Automatic Cuff 02 Sat by Pulse Oximetry 99 Oxygen Delivery Method Room Air Room Air Lab Data Lab Results 11/18/24 00:12: Urine Color Yellow, Urine Appearance Clear, Urine pH 6.0, Ur Specific [place] <= 1.005, Urine Protein Negative, Urine Glucose (UA) Negative, Urine Ketones Negative, Urine Blood Negative, Urine Nitrate Negative, Urine Bilirubin Negative, Urine Urobilinogen 0.2, Ur Leukocyte Esterase 1+ A, Urine RBC Occasional, Urine WBC 10-20, Ur Squamous Epith Cells 3-5, Urine Bacteria Trace, Urine Opiates Screen Negative, Urine Methadone Screen Negative, Ur Barbituates Screen Negative, Ur Phencyclidine Scrn Negative, Ur Amphetamines Screen Negative, U Benzodiazepines Scrn Positive H, Urine Cocaine Screen Negative, U Marijuana (THC) Screen Negative 11/18/24 00:51: WBC 8.4, RBC 4.50, Hgb 12.5, Hct 37.1, MCV 82.4, MCH 27.8, MCHC 33.7, RDW 15.3, Plt Count 253, MPV 10.5 H, Neut % (Auto) 56.5, Lymph % (Auto) 34.2, Storey % (Auto) 8.6, Eos % (Auto) 0.1, Baso % (Auto) 0.4, Neut # (Auto) 4.7, Lymph # (Auto) 2.9, [place] # (Auto) 0.7, Eos # (Auto) 0.0, Baso # (Auto) 0.0, Sodium 140, Potassium 3.5, Chloride 102, Carbon Dioxide 26, Anion Gap 15.5 H, B UN 6 L, Creatinine 0.60, Estimated Creat Clear 103, Estimated GFR 112, Est GFR ( Amer) 135, Glucose 94, Calcium 9.7, Total Bilirubin 0.7, AST 29, ALT 18, Alkaline Phosphatase 111, Total Protein 7.7, Albumin 4.7, Globulin 3.0, Albumin/Globulin Ratio 1.6, Lipase 193, Serum HCG, Qual Negative 11/18/24 00:51 11/18/24 00:51 Orders (Tests/Meds): ED MEDICATIONS Discontinued Medications Generic Name Dose Route Start Last Admin Trade Name Gayle PRN Reason Stop Dose Admin Buprenorphine/Naloxone 2 each 11/18/24 00:43 11/18/24 00:57 Buprenorphine/Naloxone 8mg/2mg Odt SL 11/18/24 00:44 2 each ONCE ONE Administration Lactated Ringer's 1,000 mls @ 999 mls/hr 11/18/24 00:44 11/18/24 02:26 Lactated Ringer's 1000 Ml Bag IV 11/18/24 01:44 Infused .Q1H1M ONE Infusion Ondansetron HCl 4 mg 11/18/24 01:34 11/18/24 01:35 Ondansetron 4mg/2ml Vial IV 11/18/24 01:35 4 mg ONCE ONE Administration ORDERS Category Date Time Status Consult Spinning Supervisor [CONS] Routine Cons 11/18/24 00:41 Active CBC w/Auto Diff [Complete Blood Count Auto Diff] Stat Lab 11/18/24 00:51 Completed CMP [Comprehensive Metabolic Panel] Stat Lab 11/18/24 00:51 Completed HCG Qualitative, Serum Stat Lab 11/18/24 00:51 Completed Lactic Acid Stat Lab 11/18/24 01:11 Received Lipase Stat Lab 11/18/24 00:51 Completed UDS [Drug Screen,Urine] Stat Lab 11/18/24 00:12 Completed Urinalysis and Microscopic Stat Lab 11/18/24 00:12 Completed Urine Culture Stat Micro 11/18/24 00:12 Received Medical Decision Narrative: In summary, this 39-year-old female with comorbidities described in the HPI presents to the emergency department today with nausea, vomiting, diarrhea, anxiety, concerns of Suboxone withdrawal. On initial evaluation patient is mildly tachycardic but otherwise hemodynamically stable, afebrile, overall well- appearing, cardiopulmonary exam benign aside from tachycardia, brisk capillary refill, abdominal exam benign. Patient reports mild anxiety but is not actively having a panic attack and has no SI or HI. Differential diagnosis includes but is not limited to Suboxone withdrawal, intoxication or substance abuse, electrolyte abnormality, dehydration, viral syndrome, anxiety, panic attack, among others. Based on these concerns, I ordered hematologic and serum labs, urinalysis, UDS, lactic. Patient has benign abdominal exam and exam is otherwise reassuring so I do not believe radiographic imaging is indicated at this time. Patient received IV fluids and after confirming her Suboxone dose with her previous PDMP received a dose of Suboxone in the ER. She still reported some nausea so Zofran was administered. Consult peer support was provided. Labs personally reviewed demonstrate no leukocytosis or anemia, normal platelets, slightly elevated anion gap consistent with vomiting and diarrhea, CMP otherwise nonactionable, hCG negative, UA negative for findings of infection, UDS positive only for benzos which patient does report recent use. On reassessment patient is tolerating oral intake and resting comfortably. She feels much improved and vitals are improved as well. I believe she is appropriate for discharge at this time. Zofran prescribed for nausea management at home if needed. Patient is scheduled for Suboxone clinic follow-up in 24 hours and I instructed her to keep this appointment. Since she has this appointment, I am not prescribing her additional Suboxone at this time. She understands this and is agreeable. I expressed to her the importance of follow- up with this appointment as well as with her primary care doctor. I also gave her strict return precautions for the ER. She indicated understanding and the patient was discharged in stable condition. Critical Care Critical Care Time Critical Care Time: No
[2024-11-18 02:15] LABS: Microscopic, Urine URINE MICROSCOPIC (MICROSCOPIC)
[2024-11-18 02:18] LABS: Bilirubin,Urine Negative (Negative); Color,Urine YELLOW (Yellow); Glucose,Urine (UA) Negative (Negative); Ketones,Urine Negative (Negative); Leukocyte Esterase,Urine 1+ (Negative); PH,Urine 6.0 (5.0-8.5); Protein,Urine Negative (Negative); Specific Gravity, Urine <= 1.005 (1.005-1.030); Urobilinogen,Urine 0.2 EU/dl (0.2)
[2024-11-18 02:26] VITALS: BP 124/78; PULSE 78; RESP 17; TEMP 36.6; O2SAT 95
[2024-11-18 02:26] LABS: Bacteria,Urine Trace /lpf; RBC,Urine Occasional #/hpf (0-3)
[2024-11-18 02:31] LABS: Barbiturates Screen,Urine Negative ng/ml (<200)
[2024-11-18 02:32] LABS: Amphetamine/Metha Screen,Urine Negative ng/ml (<1000); Benzodiazepines Screen,Urine Positive ng/ml (<200)
[2024-11-18 02:33] LABS: Methadone Screen,Urine Negative ng/ml (<300)
[2024-11-18 02:35] LABS: Opiate Screen,Urine Negative ng/ml (<300); Phencyclidine Screen,Urine Negative ng/ml (<25)
--- NOTE | 2024-11-20 13:54 | PEERSUPPORT ---
Peer Support Note Patient Information Patient Information: DOS: 11/19/2024 Ps attempted to make contact with pt. No answer, no option of voicemail.
== END 2024-11-18 02:30 | disposition home or self-care (01) ==
PROVIDERS: Emergency Provider Emergency Medicine; PCP Emergency Medicine
DX: R00.0 Tachycardia, unspecified (principal); F11.23 Opioid dependence with withdrawal; R11.2 Nausea with vomiting, unspecified; R19.7 Diarrhea, unspecified; F17.210 Nicotine dependence, cigarettes, uncomplicated
CPT/HCPCS: 80053; 80307; 81001; 83605; 83690; 84703; 85025; 87086; 96361; 96374; 99284; J0574; J2405; J7120